=== PATIENT | male | born 1945 | race Caucasian/White ===

== ENCOUNTER 2016-11-09 23:00 | Emergency (ER) | payer MEDICARE, OTHER ==
[~2016-11-09] VITALS: Ht 165.1 cm; Wt 73.7 kg
[~2016-11-09 23:00] MED LIST: CAPT25TA3 PO; CIPR500T4 PO; DOCU-144 PO; HYDR-3498 PO; METR500T PO; RIZA10TA24 PO
[2016-11-09 23:07] VITALS: Ht 165.1 cm; Wt 73.7 kg
[2016-11-10] MEDS ORDERED: morphine 4 MG/ML VIAL IV STA (01:01)
[2016-11-10] MEDS ORDERED: SOD CHLORIDE 0.9% 500 ML IV STA (01:01)
[2016-11-10] MEDS ORDERED: ONDANSETRON 4 MG INJ IV STA (01:01)
[2016-11-10 01:35] LABS: ADD SCAN DIFF NO
[2016-11-10 01:39] LABS: BASOPHILS % 0.8 % (0.0-2.0); EOSINOPHILS # 0.1 10^3/ul (0.0-0.5); EOSINOPHILS % 2.7 % (0.0-7.0); HEMATOCRIT 41.6 % (42.0-52.0); HEMOGLOBIN 13.7 g/dl (14.0-18.0); LYMPHOCYTES # 1.7 10^3/ul (0.8-2.9); LYMPHOCYTES % 45.8 % (15.0-51.0); MEAN CORPUSCULAR HEMOGLOBIN 30.2 pg (29.0-33.0); MEAN CORPUSCULAR HGB CONC 32.9 g/dl (32.0-37.0); MEAN CORPUSCULAR VOLUME 91.6 fl (82.0-101.0); MEAN PLATELET VOLUME 10.1 fl (7.4-10.4); MONOCYTE # 0.5 10^3/ul (0.3-0.9); MONOCYTES % 13.7 % (0.0-11.0); NEUTROPHIL # 1.4 10^3/ul (1.6-7.5); PLATELET COUNT 165 10^3/UL (140-415); RED BLOOD COUNT 4.54 10^6/ul (4.70-6.10); RED CELL DISTRIBUTION WIDTH 13.8 % (11.5-14.5); WHITE BLOOD COUNT 3.7 10^3/ul (4.8-10.8)
[2016-11-10 01:49] LABS: ALBUMIN 4.1 g/dl (3.3-4.9)
[2016-11-10 01:50] LABS: POTASSIUM 4.3 mmol/L (3.5-5.1)
[2016-11-10 01:52] LABS: ALBUMIN/GLOBULIN RATIO 1.2; BILIRUBIN,INDIRECT 0.2 mg/dl (0-1.1); BILIRUBIN,TOTAL 0.2 mg/dl (0.2-1.3); CREATININE 0.69 mg/dl (0.61-1.24); TOTAL PROTEIN 7.5 g/dl (6.1-8.1)
[2016-11-10 01:53] LABS: CALCIUM 9.1 mg/dl (8.4-10.2)
--- NOTE | 2016-11-10 02:58 | RADRPT ---
PROCEDURE: CT Abdomen and Pelvis without contrast. CLINICAL INDICATION: Pain. TECHNIQUE: CT scan of the abdomen and pelvis was performed on a multidetector slice CT scanner. N o intravenous contrast material was utilized. Sagittal and coronal reformatted images were obtained from the axial source images. Images were reviewed on a high-resolution PACS workstation. Exam CTDl vol = 9 mGy and DLP = 530 Gy-cm. One of the following 3 dose reduction techniques were used: Automa minoo exposure control; adjustment of the mA and/or kV according to patient size; or use of iterative reconstruction technique. COMPARISON: 04/23/2016 FINDINGS: There is no obstruction or ileus. The appendix is visualized and is normal in size. There is no ev idence for acute appendicitis. There is left and sigmoid colon diverticulosis without evidence for diverticulitis. There is no free fluid. The liver is overall normal in size. No intrahepatic lesions are identified. The gallbladder is no rmal in appearance. There is no definite biliary ductal dilation. Pancreas is normal in appearance. Spleen is unremarkable.. There are no adrenal masses. The aorta is normal caliber. There are mild atherosclerotic vascular calcifications. There are bilateral renal cyst, largest lower pole right kidney 2.4 cm diameter. Kidneys are otherw ise normal in appearance without hydronephrosis, mass or calculus. Ureters are of normal caliber. Urinary bladder is unremarkable. The bones are unremarkable. Limited evaluation lung bases demonstrates an unchanged 5.4 x 4.6 mm noncalcified lung nodule. IMPRESSION: 1. Left and sigmoid colon diverticulosis without evidence for acute diverticulitis. 2. No evidence for appendicitis. 3. No obstruction or ileus. 4. Bilateral renal cyst. No obstructive uropathy. 5. Mild atherosclerotic vascular calcifications. 6. Unchanged noncalcified right lower lobe nodule. RPTAT: HMVK .Elias Smith MD, MD Date Time Electronically viewed and signed by .Elias Smith MD, MD on 11/10/2016 02:57 .K/
[2016-11-10 02:59] LABS: ADD UMIC YES; URINE BILIRUBIN (Dip) NEGATIVE (NEGATIVE); URINE BLOOD (Dip) 1+ (NEGATIVE); URINE COLOR LT. YELLOW (YELLOW); URINE GLUCOSE (Dip) NEGATIVE (NEGATIVE); URINE KETONES (Dip) NEGATIVE (NEGATIVE); URINE LEUKOCYTE ESTERASE (Dip) NEGATIVE (NEGATIVE); URINE NITRITE (Dip) NEGATIVE (NEGATIVE); URINE TOTAL PROTEIN (Dip) NEGATIVE (NEGATIVE); URINE UROBILINOGEN (Dip) 0.2 E.U./dL (0.1-1.0)
[2016-11-10 03:29] LABS: URINE RBCS 0-2 /HPF (0)
--- NOTE | 2016-11-10 03:38 | ERD ---
ER Documentation Chief Complaint Date/Time DATE: 11/10/16 TIME: 03:37 Chief Complaint RLQ ABD PAIN STARTING TODAY. DENIES N/V/D OR DYSURIA HPI This a 71-year-old male right lower quadrant vomiting started today. Denies any nausea vomiting diarrhea. Pain is mild to moderate intensity. Denies any fevers or chills. Patient has history of diverticulitis and diverticulosis. ROS All systems reviewed and are negative except as per history of present illness. Medications Home Meds Active Scripts Docusate Sodium* (Colace*) 100 Mg Capsule, 100 MG PO TID, #30 CAP Prov:JAMEWINTHA DO 04/23/16 Hydrocodone Bit-Acetaminophen* ([place]*) 5-325 Mg Tab, 1 TAB PO Q6 Y for PAIN, # 7 TAB Prov:JAMEWINTHA DO 04/23/16 Metronidazole* (Flagyl*) 500 Mg Tablet, 500 MG PO TID for 10 Days, TAB Prov:JOSE ANTONIO KILGORE DO 04/23/16 Ciprofloxacin Hcl* (Ciprofloxacin Hcl*) 500 Mg Tablet, 500 MG PO BID for 10 Days , TAB Prov:SGNIKKYKaykayWINTHA DO 04/23/16 Hydrocodone Bit-Acetaminophen* ([place]*) 5-325 Mg Tab, 1 TAB PO Q6 Y for PAIN, # 7 TAB Prov:AURORA ABARCA PA-C 07/27/15 Reported Medications Rizatriptan Benzoate (Rizatriptan Benzoate) 10 Mg Tab.rapdis, 10 MG PO NEEDED Y for MIGRAINE, TAB may repeat after 2 hours, MAX 30 mg/24 hour 04/23/16 Captopril* (Captopril*) 25 Mg Tablet, 25 MG PO DAILY, #60 TAB 11/08/15 Allergies Allergies: Coded Allergies: No Known Drug Allergies (Verified Allergy, Unknown, 04/23/16) PMhx/Soc History of Surgery: No Anesthesia Reaction: No Hx Neurological Disorder: No Hx Respiratory Disorders: Yes (COPD) Hx Cardiac Disorders: Yes (HTN) Hx Psychiatric Problems: No Hx Miscellaneous Medical Probl: No Hx Alcohol Use: No Hx Substance Use: No Hx Tobacco Use: No Smoking Status: Never smoker Physical Exam Vitals Vital Signs Date Time Temp Pulse Resp B/P Pulse Ox O2 Delivery O2 Flow Rate FiO2 11/10/16 01:24 97.0 70 17 140/97 100 11/09/16 23:07 96.2 61 16 123/74 97 Physical Exam Const: [] Head: Atraumatic Eyes: Normal Conjunctiva ENT: Normal External Ears, Nose and Mouth. Neck: Full range of motion..~ No meningismus. Resp: Clear to auscultation bilaterally Cardio: Regular rate and rhythm, no murmurs Abd: Soft, non tender, non distended. Normal bowel sounds Skin: No petechiae or rashes Back: No midline or flank tenderness Ext: No cyanosis, or edema Neur: Awake and alert Psych: Normal Mood and Affect Result Diagram: 11/10/166 11/10/16 0116 Results 24 hrs Laboratory Tests Test 11/10/16 01:16 11/10/16 02:00 Alanine Aminotransferase (ALT/SGPT) 25IU/L Albumin 4.1g/dl Albumin/Globulin Ratio 1.20 Alkaline Phosphatase 38IU/L Anion Gap 15 Aspartate Amino Transf (AST/SGOT) 19IU/L Basophils # 0.010^3/ul Basophils % 0.8% Blood Urea Nitrogen 17mg/dl Calcium Level 9.1mg/dl Carbon Dioxide Level 27mmol/L Chloride Level 103mmol/L Creatinine 0.69mg/dl Direct Bilirubin 0.00mg/dl Eosinophils # 0.110^3/ul Eosinophils % 2.7% Globulin 3.40g/dl Glucose Level 81mg/dl Hematocrit 41.6% Hemoglobin 13.7g/dl Indirect Bilirubin 0.2mg/dl Lipase 69U/L Lymphocytes # 1.710^3/ul Lymphocytes % 45.8% Mean Corpuscular Hemoglobin 30.2pg Mean Corpuscular Hemoglobin Concent 32.9g/dl Mean Corpuscular Volume 91.6fl Mean Platelet Volume 10.1fl Monocytes # 0.510^3/ul Monocytes % 13.7% Neutrophils # 1.410^3/ul Neutrophils % 37.0% Nucleated Red Blood Cells # 0.010^3/ul Nucleated Red Blood Cells % 0.0/100WBC Platelet Count 47415^3/UL Potassium Level 4.3mmol/L Red Blood Count 4.5410^6/ul Red Cell Distribution Width 13.8% Sodium Level 141mmol/L Total Bilirubin 0.2mg/dl Total Protein 7.5g/dl White Blood Count 3.710^3/ul Urine Bilirubin NEGATIVE Urine Calcium Oxalate Crystals FEW Urine Clarity CLEAR Urine Color LT. YELLOW Urine Glucose NEGATIVE% Urine Hemoglobin 1+ Urine Ketones NEGATIVE Urine Leukocyte Esterase NEGATIVE Urine Microscopic RBC 0-2/HPF Urine Microscopic WBC NONE SEEN/HPF Urine Nitrite NEGATIVE Urine Specific [place] 1.020 Urine Total Protein NEGATIVE Urine Urobilinogen 0.2 E.U./dL Urine pH 6.0 Current Medications Medications (Trade) Dose Ordered Sig/Frank Route PRN Reason Start Time Stop Time Status Last Admin Dose Admin Sodium Chloride (NS) 500 ml @ 500 mls/hr Q1H STAT IV 11/10/16 01:01 11/10/16 02:00 DC 11/10/16 01:15 Morphine Sulfate (morphine) 4 mg ONCE STAT IV 11/10/16 01:01 11/10/16 01:02 DC Ondansetron HCl (Zofran Inj) 4 mg ONCE STAT IV 11/10/16 01:01 11/10/16 01:03 DC Procedures/MDM Medical decision-makin-year-old male with a early evidence of diverticulitis. No evidence of sepsis. Patient was discharged on Cipro Flagyl , tramadol and Zofran. Follow-up in 8 hours for serial abdominal exams. Departure Diagnosis: Primary Impression: Abdominal pain Abdominal location: right lower quadrant Qualified Code: R10.31 - Right lower quadrant abdominal pain Condition: Stable LEEROY RIVAS Nov 10, 2016 03:38
[2016-11-10] MEDS ORDERED: TRAM50TA2 PO (03:40)
[2016-11-10] MEDS ORDERED: METR500T PO (03:40)
[2016-11-10] MEDS ORDERED: CIPR500T4 PO (03:40)
[2016-11-10] MEDS ORDERED: ONDA4TAB14 PO (03:40)
[2016-11-10 04:10] VITALS: BP 130/90; PULSE 65; RESP 18; TEMP 97
== END 2016-11-10 04:11 | disposition home or self-care (01) ==
LOC: FTE 23:00 → E/R 11-10 04:11
DX: R10.31 Right lower quadrant pain (principal); I10 Essential (primary) hypertension; J44.9 Chronic obstructive pulmonary disease, unspecified
CPT/HCPCS: 36415; 74176; 80053; 81001; 83690; 85025; 99285; J7040; 81003; J2270; J2405

== ENCOUNTER 2016-12-15 03:42 | Observation (INO) | payer OTHER, MEDICARE ==
[~2016-12-15] VITALS: Ht 170.2 cm; Wt 72.5 kg
[~2016-12-15 03:42] MED LIST changes: +ONDA4TAB14 PO; +TRAM50TA2 PO
[2016-12-15 04:27] LABS: ADD SCAN DIFF NO
[2016-12-15 04:37] LABS: ALBUMIN 4.2 g/dl (3.3-4.9)
[2016-12-15 04:38] LABS: CHLORIDE 104 mmol/L (97-110); POTASSIUM 4.2 mmol/L (3.5-5.1); SODIUM 139 mmol/L (135-144)
[2016-12-15 04:39] LABS: PROTIME 13.2 Sec (12.2-14.2)
[2016-12-15 04:40] LABS: ALBUMIN/GLOBULIN RATIO 1.35; ALKALINE PHOSPHATASE 40 IU/L (42-121); ANION GAP 11 (8-16); ASPARTATE AMINO TRANSFERASE 17 IU/L (15-46); BASOPHILS % 0.8 % (0.0-2.0); BILIRUBIN,INDIRECT 0.3 mg/dl (0-1.1); BILIRUBIN,TOTAL 0.3 mg/dl (0.2-1.3); CARBON DIOXIDE 28 mmol/L (21-31); CREATININE 0.78 mg/dl (0.61-1.24); EOSINOPHILS # 0.1 10^3/ul (0.0-0.5); EOSINOPHILS % 2.8 % (0.0-7.0); HEMATOCRIT 41.5 % (42.0-52.0); LYMPHOCYTES # 1.6 10^3/ul (0.8-2.9); MEAN CORPUSCULAR HEMOGLOBIN 31.3 pg (29.0-33.0); MEAN CORPUSCULAR HGB CONC 33.7 g/dl (32.0-37.0); MEAN CORPUSCULAR VOLUME 92.6 fl (82.0-101.0); MEAN PLATELET VOLUME 10.2 fl (7.4-10.4); MONOCYTE # 0.5 10^3/ul (0.3-0.9); MONOCYTES % 12.5 % (0.0-11.0); NEUTROPHIL # 1.7 10^3/ul (1.6-7.5); NEUTROPHILS % 42.6 % (39.0-77.0); PARTIAL THROMBOPLASTIN TIME 28.7 Sec (25.0-35.0); PLATELET COUNT 174 10^3/UL (140-415); RED BLOOD COUNT 4.48 10^6/ul (4.70-6.10); RED CELL DISTRIBUTION WIDTH 13.7 % (11.5-14.5); TOTAL PROTEIN 7.3 g/dl (6.1-8.1)
[2016-12-15 04:41] LABS: ALANINE AMINOTRANSFERASE 25 IU/L (13-69); BLOOD UREA NITROGEN 19 mg/dl (7-20); CALCIUM 9.3 mg/dl (8.4-10.2); GLUCOSE 97 mg/dl (70-220)
[2016-12-15 04:49] LABS: B-TYPE NATRIURETIC PEPTIDE 54 PG/ML (0-125)
[2016-12-15 05:02] LABS: TROPONIN-I < 0.010 ng/ml (0.00-0.12)
--- NOTE | 2016-12-15 05:18 | ERA ---
ER Documentation Chief Complaint Date/Time DATE: 12/15/16 TIME: 05:17 Chief Complaint LEFT CHEST PAIN/BURNING SINCE YESTERDAY. HPI This is a 8-year-old male comes left-sided chest pain started 12 hours ago. Pain is mild to moderate intensity. Pressure-like. Non-radiating. No exacerbating relieving factors. No diaphoresis. No nausea no vomiting no fevers no chills. No other current complaints. ROS All systems reviewed and are negative except as per history of present illness. Medications Home Meds Active Scripts Ondansetron (Ondansetron Odt) 4 Mg Tab.rapdis, 4 MG PO Q6H Y for NAUSEA AND/OR VOMITING, #10 TAB Prov:LEEROY RIVAS S. 11/10/16 Tramadol HCl (Tramadol HCl) 50 Mg Tablet, 50 MG PO Q4 Y for PAIN, #20 TAB Prov:LEEROY RIVAS S. 11/10/16 Metronidazole* (Flagyl*) 500 Mg Tablet, 500 MG PO TID for 7 Days, TAB Prov:LEEROY RIVAS S. 11/10/16 Ciprofloxacin Hcl* (Ciprofloxacin Hcl*) 500 Mg Tablet, 500 MG PO BID for 7 Days , TAB Prov:LEEROY RIVAS S. 11/10/16 Docusate Sodium* (Colace*) 100 Mg Capsule, 100 MG PO TID, #30 CAP Prov:JOSE ANTONIO KILGORE DO 04/23/16 Hydrocodone Bit-Acetaminophen* ([place]*) 5-325 Mg Tab, 1 TAB PO Q6 Y for PAIN, # 7 TAB Prov:JOSE ANTONIO KILGORE DO 04/23/16 Metronidazole* (Flagyl*) 500 Mg Tablet, 500 MG PO TID for 10 Days, TAB Prov:JOSE ANTONIO KILGORE DO 04/23/16 Ciprofloxacin Hcl* (Ciprofloxacin Hcl*) 500 Mg Tablet, 500 MG PO BID for 10 Days , TAB Prov:JOSE ANTONIO KILGORE DO 04/23/16 Hydrocodone Bit-Acetaminophen* ([place]*) 5-325 Mg Tab, 1 TAB PO Q6 Y for PAIN, # 7 TAB Prov:AURORA ABARCA PA-C 07/27/15 Reported Medications Rizatriptan Benzoate (Rizatriptan Benzoate) 10 Mg Tab.rapdis, 10 MG PO NEEDED Y for MIGRAINE, TAB may repeat after 2 hours, MAX 30 mg/24 hour 04/23/16 Captopril* (Captopril*) 25 Mg Tablet, 25 MG PO DAILY, #60 TAB 11/08/15 Allergies Allergies: Coded Allergies: No Known Drug Allergies (Verified Allergy, Unknown, 04/23/16) PMhx/Soc History of Surgery: No Anesthesia Reaction: No Hx Neurological Disorder: No Hx Respiratory Disorders: Yes (COPD) Hx Cardiac Disorders: Yes (HTN, CHEST PAIN) Hx Psychiatric Problems: No Hx Miscellaneous Medical Probl: Yes (ANEMIA, CHRONIC BACK PAIN) Hx Alcohol Use: No Hx Substance Use: No Hx Tobacco Use: Yes (QUIT 3 YEARS AGO) Smoking Status: Former smoker Physical Exam Vitals Vital Signs Date Time Temp Pulse Resp B/P Pulse Ox O2 Delivery O2 Flow Rate FiO2 12/15/16 05:06 98.1 68 18 131/91 100 Nasal Cannula 2.0 12/15/16 04:28 Nasal Cannula 2 12/15/16 03:57 96.5 61 18 133/83 99 Physical Exam Const: [] Head: Atraumatic Eyes: Normal Conjunctiva ENT: Normal External Ears, Nose and Mouth. Neck: Full range of motion..~ No meningismus. Resp: Clear to auscultation bilaterally Cardio: Regular rate and rhythm, no murmurs Abd: Soft, non tender, non distended. Normal bowel sounds Skin: No petechiae or rashes Back: No midline or flank tenderness Ext: No cyanosis, or edema Neur: Awake and alert Psych: Normal Mood and Affect Result Diagram: 12/15/16 0420 12/15/16 0420 Results 24 hrs Laboratory Tests Test 12/15/16 04:20 White Blood Count 4.010^3/ul Red Blood Count 4.4810^6/ul Hemoglobin 14.0g/dl Hematocrit 41.5% Mean Corpuscular Volume 92.6fl Mean Corpuscular Hemoglobin 31.3pg Mean Corpuscular Hemoglobin Concent 33.7g/dl Red Cell Distribution Width 13.7% Platelet Count 42151^3/UL Mean Platelet Volume 10.2fl Neutrophils % 42.6% Lymphocytes % 41.0% Monocytes % 12.5% Eosinophils % 2.8% Basophils % 0.8% Nucleated Red Blood Cells % 0.0/100WBC Neutrophils # 1.710^3/ul Lymphocytes # 1.610^3/ul Monocytes # 0.510^3/ul Eosinophils # 0.110^3/ul Basophils # 0.010^3/ul Nucleated Red Blood Cells # 0.010^3/ul Prothrombin Time 13.2Sec Prothrombin Time Ratio 1.0 INR International Normalized Ratio 1.00 Activated Partial Thromboplast Time 28.7Sec Sodium Level 139mmol/L Potassium Level 4.2mmol/L Chloride Level 104mmol/L Carbon Dioxide Level 28mmol/L Anion Gap 11 Blood Urea Nitrogen 19mg/dl Creatinine 0.78mg/dl Glucose Level 97mg/dl Calcium Level 9.3mg/dl Total Bilirubin 0.3mg/dl Direct Bilirubin 0.00mg/dl Indirect Bilirubin 0.3mg/dl Aspartate Amino Transf (AST/SGOT) 17IU/L Alanine Aminotransferase (ALT/SGPT) 25IU/L Alkaline Phosphatase 40IU/L Troponin I < 0.010ng/ml B-Type Natriuretic Peptide 54PG/ML Total Protein 7.3g/dl Albumin 4.2g/dl Globulin 3.10g/dl Albumin/Globulin Ratio 1.35 Procedures/MDM EKG: Rate/Rhythm: Normal Sinus Rhythm QRS, ST, T-waves: No changes consistent w/ acute ischemia Impression: No evidence of ischemia or arrhythmia Chest X-ray 1V Interpreted by me: Soft Tissue: No acute abnormalities Bones: No acute abnormalities Mediastinum/Cardiac Silhouette/Lungs: No acute abnormalities Patient's symptoms are concerning for cardiac cause will require inpatient workup and continuous monitoring. Further w/u for ischemia, arrhythmia, PE or dissection will be deferred to the inpatient team. Accepting Care Team: Current data and ongoing care discussed. Time: 5:20 AM Primary Provider: Hospitalist Consulting: [XOXOXO] Outstanding Data: none Departure Diagnosis: Primary Impression: Chest pain Qualified Code: I20.0 - Unstable angina pectoris Condition: Serious LEEROY RIVAS Dec 15, 2016 05:18
--- NOTE | 2016-12-15 05:20 | RADRPT ---
PROCEDURE: XR Chest. CLINICAL INDICATION: Chest Pain. TECHNIQUE: Single frontal chest x-ray. COMPARISON: 11/02/2014 FINDINGS: No focal lung consolidation is seen. The heart is not enlarged. ECG leads are projected over the c hest. COPD is again suggested. Fat pads in bilateral cardiophrenic angles again seen. IMPRESSION: 1. There is no acute cardiopulmonary process. RPTAT: HJES .Lisandro Mahan MD, MD Date Time Electronically viewed and signed by .Lisandro Mahan MD, on 12/15/2016 05:20 .S/
[2016-12-15] MEDS ORDERED: ASPIRIN 81 MG TAB PO ONE (05:21)
[2016-12-15] MEDS ORDERED: ONDANSETRON 4 MG INJ IV ONE (05:21)
[2016-12-15] MEDS ORDERED: morphine 2 MG INJ IV ONE (05:21)
[2016-12-15] MEDS ORDERED: METOCLOPRAMIDE 10 MG INJ IV PRN (06:00)
[2016-12-15] MEDS ORDERED: morphine 2 MG INJ IV PRN (06:00)
[2016-12-15] MEDS ORDERED: OXYCODONE/ACETAMINOPHEN (5/325) TAB PO PRN (06:00)
[2016-12-15] MEDS ORDERED: ACETAMINOPHEN 325 MG TAB PO PRN (06:00)
[2016-12-15] MEDS ORDERED: NACL 0.9% 3 ML SYG IV SCH (06:00)
[2016-12-15] MEDS ORDERED: NITROGLYCERIN (SL) 0.4 MG TAB SL PRN (06:00)
[2016-12-15 08:25] LABS: CREATINE KINASE 65 IU/L (23-200)
[2016-12-15] MEDS: ENOXAPARIN 40 MG/0.4 ML SYG SC SCH (08:36)
[2016-12-15 08:37] LABS: CK-MB 0.63 ng/ml (0.0-2.4)
[2016-12-15] MEDS: DOCUSATE SODIUM 100 MG CAP PO SCH ×3 (08:41→22:18)
[2016-12-15 08:42] LABS: TROPONIN-I < 0.010 ng/ml (0.00-0.12)
[2016-12-15] MEDS ORDERED: FAMOTIDINE 20 MG TAB PO SCH (09:00)
[2016-12-15 10:02] LABS: CHOL/HDL RATIO 4.4 RATIO
[2016-12-15] MEDS: ATORVASTATIN 20 MG TAB PO SCH (10:14)
--- NOTE | 2016-12-15 11:49 | CONS ---
Date/Time of Note Date/Time of Note DATE: 12/15/16 TIME: 11:31 Assessment/Plan Assessment/Plan Additional Assessment/Plan * Assessment * Chest pain Cardiac vs gi vs others History of Diverticulosis History of COPD Plan EGD once cleared by cardiac,risks and benefit explained to the patient,agreed with plan procedure PPI Consultation Date/Type/Reason Admit Date/Time Type of Consultation: Gastroenterology Reason for Consultation Chest discomfort Referring Provider: MARIAN NATION Hx of Present Illness 71 year old male with past medical history of COPD,Diverticulosis referred to for evaluation of chest discomfort 12 hours ago ,non radiating,localized,no nausea ,vomiting or diaphoresis;Patient had been seen previously here in our hospital because of Chest pain/GERD and Diverticulitis.Presently ,he denies any chest pain ,dysphagia or diaphoresis but claims to have an episode of heartburn 3 weeks ago .He refused morphine being offered.I have explained that an upper endoscopy would be performed to rule any possible pathology in the GI tract Laboratory examination revealed troponin less than 0.010 x2 ,CKMB 0.63 Hemoglobin 14,chest x ray no acute pulmonary process. Constitutional: improved, no complaints Eyes: no complaints ENT: no complaints Respiratory: no complaints Cardiovascular: chest pain, No edema, No orthopenea, No palpitations, No paroxysmal nocturnal dyspnea Gastrointestinal: flatus, no complaints, other (bloating), passing stool, No constipation, No nausea Genitourinary: no complaints Musculoskeletal: no complaints Skin: no complaints Neurologic: no complaints Endocrine: no complaints Lymphatic: no complaints Psychological: nl mood/affect, no complaints Immunologic: no complaints Past Medical History Medical History: other (copd,Diverticulosis) Past Surgical History Past Surgical Hx: no surgical history Family History Significant Family History: no pertinent family hx Social History Alcohol Use: rarely Smoking Status: Former smoker Exam/Review of Systems Vital Signs Vitals Vital Signs Date Time Temp Pulse Resp B/P Pulse Ox O2 Delivery O2 Flow Rate FiO2 12/15/16 11:09 66 18 105/69 100 Nasal Cannula 2.0 12/15/16 08:44 98.1 Exam Constitutional: alert, oriented, well developed Psych: nl mood/affect, no complaints Head: atraumatic, normocephalic Eyes: EOMI, PERRL, nl conjunctiva, nl lids, nl sclera ENMT: nl external ears & nose, nl lips & teeth, nl nasal mucosa & septum Neck: non-tender, supple Respiratory: clear to auscultation, normal air movement Cardiovascular: nl pulses, regular rate and rhythm Gastrointestinal: bowel sounds, nl liver, spleen, non-tender, soft, No rebound or guarding Musculoskeletal: nl extremities to inspection, nl gait and stance Extremities: normal pulses Neurological: LEAD DEVELOPER II-XII intact, nl mental status, nl speech, nl strength Skin: nl turgor, No rash or lesions Lymph: nl lymph nodes Results Result Diagram: 12/15/1641912/15/16 042 Results 24 hrs Laboratory Tests Test 12/15/16 04:20 12/15/16 07:30 White Blood Count 4.0 L Red Blood Count 4.48 L Hemoglobin 14.0 Hematocrit 41.5 L Mean Corpuscular Volume 92.6 Mean Corpuscular Hemoglobin 31.3 Mean Corpuscular Hemoglobin Concent 33.7 Red Cell Distribution Width 13.7 Platelet Count 174 Mean Platelet Volume 10.2 Neutrophils % 42.6 Lymphocytes % 41.0 Monocytes % 12.5 H Eosinophils % 2.8 Basophils % 0.8 Nucleated Red Blood Cells % 0.0 Neutrophils # 1.7 Lymphocytes # 1.6 Monocytes # 0.5 Eosinophils # 0.1 Basophils # 0.0 Nucleated Red Blood Cells # 0.0 Prothrombin Time 13.2 Prothrombin Time Ratio 1.0 INR International Normalized Ratio 1.00 Activated Partial Thromboplast Time 28.7 Sodium Level 139 Potassium Level 4.2 Chloride Level 104 Carbon Dioxide Level 28 Anion Gap 11 Blood Urea Nitrogen 19 Creatinine 0.78 Glucose Level 97 Calcium Level 9.3 Total Bilirubin 0.3 Direct Bilirubin 0.00 Indirect Bilirubin 0.3 Aspartate Amino Transf (AST/SGOT) 17 Alanine Aminotransferase (ALT/SGPT) 25 Alkaline Phosphatase 40 L Troponin I < 0.010 < 0.010 B-Type Natriuretic Peptide 54 Total Protein 7.3 Albumin 4.2 Globulin 3.10 Albumin/Globulin Ratio 1.35 Creatine Kinase 65 Creatine Kinase Index 1.0 Creatinine Kinase MB (Mass) 0.63 Triglycerides Level 90 Cholesterol Level 202 H LDL Cholesterol, Calculated 139 HDL Cholesterol 45 Cholesterol/HDL Ratio 4.4 Medications Medications Current Medications Captopril (Capoten) 25 mg DAILY PO Last administered on 12/15/16t 08:35; Admin Dose 25 MG; Start 12/15/16 at 09:00 Docusate Sodium (Colace) 100 mg TID PO ; Start 12/15/16 at 09:00 Metoclopramide HCl (Reglan) 10 mg Q6H PRN IV NAUSEA AND/OR VOMITING; Start 12/15 at 06:00 Nitroglycerin (Nitroglycerin (Sl Tab) 0.4 Mg) 1 tab Q5M PRN SL CHEST PAIN; Start 12/15/16 at 06:00 Acetaminophen (Tylenol Tab) 650 mg Q6H PRN PO PAIN LEVEL 1-3 OR FEVER; Start at 06:00 Oxycodone/ Acetaminophen (Percocet (5/ 325)) 1 tab Q6H PRN PO PAIN LEVEL 4-6; Start 12/15/16 at 06:00 Morphine Sulfate (morphine) 2 mg Q4H PRN IV PAIN LEVEL 7-10; Start 12/15/16 at 06:00 Famotidine (Pepcid) 20 mg Q12 PO Last administered on 12/15/16 08:37; Admin Dose 20 MG; Start 12/15/16 at 09:00 Enoxaparin Sodium (Lovenox) 40 mg DAILY SC Last administered on 12/15/16 08:36 ; Admin Dose 40 MG; Start 12/15/16 at 09:00 Aspirin (Halfprin) 81 mg DAILY PO ; Start 12/16/16 at 09:00 Atorvastatin Calcium (Lipitor) 20 mg DAILY PO Last administered on 12/15/16 10: 14; Admin Dose 20 MG; Start 12/15/16 at 10:00 DERIC JULIEN MD Dec 15, 2016 11:43
[2016-12-15 15:29] LABS: CREATINE KINASE 61 IU/L (23-200)
[2016-12-15 15:43] LABS: CK-MB 0.62 ng/ml (0.0-2.4); TROPONIN-I < 0.012 ng/ml (0.00-0.12)
--- NOTE | 2016-12-15 17:05 | HP ---
DATE OF ADMISSION: 12/15/2016 FAMILY AND CONSUMER SCIENCES TEACHER: Naresh Rubio MD, rejogger. CHIEF COMPLAINT: Abdominal pain and chest discomfort. 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 He presents to [facility], which his troponin was found to be negative. His chest x-ray showed there is no acute cardiopulmonary disease. EKG demonstrated norm al sinus rhythm, no changes consistent with acute ischemia. No evidence of ischemia or arrhythmia. The patient was treated with Zofran, morphine and aspirin, and gastroenterology was consulted from course of the emergency room. At this time, the patient states that his discomfort has resolved com pletely. He denies having any chest pain, shortness of breath, nausea, vomiting, diarrhea. No head ache, dizziness, lightheadedness. No change in visual acuity, diplopia, photophobia. No abdominal pain. No change in the color of stool. No neck pain, no restricted range of motion in upper and lo wer extremities. No recent travel history. No sick contact or any other discomfort. PAST MEDICAL AND SURGICAL HISTORY: 1. Hypertension. 2. Noncompliance with medications. MEDICATIONS: 1. Captopril. 2. Colace. 3. Aspirin, although he is not compliant with any of them. ALLERGIES: NO KNOWN DRUG ALLERGIES. FAMILY HISTORY: Noncontributory. SOCIAL HISTORY: History of alcohol socially. Smoked cigarettes 1 pack a day, he is in remission fo r the past 3 years. No illicit drugs. He lives at home with his son. REVIEW OF SYSTEMS: As above per HPI, otherwise 12 review of systems was found to be negative. PHYSICAL EXAMINATION: VITAL SIGNS: Temperature 98.1, pulse 60, respirations 18, blood pressure 106/79, oxygen saturation 100% in room air. GENERAL APPEARANCE: The patient is lying in bed comfortably without any distress. He is awake, leonid rt, oriented. He is able to answer my questions properly. EYES AND ENT: Conjunctivae and lids are normal. Pupils are normal. Extraocular normal. Hearing g rossly normal. Lips, teeth and gums are normal. Oral mucosa is moist. NECK: Supple. Trachea is midline. No lymphadenopathy. RESPIRATORY: Effort is normal. Clear to auscultation bilaterally. CARDIOVASCULAR: Normal S1, S2. Regular rhythm and rate. No murmur, no bruits, no edema. Peripher al pulses, radial pulses palpable. Capillary refill is normal. CHEST: Normal expansion of thorax during inspiration. GASTROINTESTINAL: Abdomen is soft, nontender, not distended. Bowel sounds present. No guarding or rebound. GENITOURINARY: Deferred. MUSCULOSKELETAL: Upper and lower extremities within normal limits. Full range of motion. Strength 5/5 in both upper and lower extremities. NEUROLOGIC: Cranial nerves II through XII are grossly intact. PSYCHIATRIC: Normal judgment and insight. Alert and oriented x3. Mood and affect is normal. LABORATORY DATA: Sodium 139, potassium 4.2, chloride 104, bicarbonate 28, BUN 19, creatinine 0.78, glucose 97. LFTs all within normal limits. Troponin negative x2. Triglycerides 90, total choleste rol 202, LDL 139, HDL 45. TSH 7.490. WBC 4.0, hemoglobin 14, hematocrit 41.5, platelets 174. Chest x-ray: No acute cardiopulmonary disease. EKG: No sign of ST elevation or depression, no sig n of ischemia. ASSESSMENT AND PLAN: 1. Atypical chest pain. The patient will be admitted to rule out acute coronary syndrome. The pat ient's troponin is negative x2. Place the patient on aspirin and statin. Continue captopril. Card iology will be consulted. Obtain a 2D echocardiogram. 2. Abdominal discomfort. Gastroenterology has been consulted. The patient has been placed on Prot chi. Follow up their recommendation. 3. Essential hypertension, well controlled on captopril. 4. Abnormal thyroid panel. Follow up free T3 and free T4 and treat accordingly. 5. Noncompliance with medications. Education was provided. 6. We will continue to monitor the patient closely. Further recommendations, management and treatm ent as per clinical course. Dictated By: KAMARI TAVARES MD PN/NTS Conf#: [id number] DID#: [id number]
[2016-12-15 17:17] VITALS: TEMP 97.8
--- NOTE | 2016-12-15 18:04 | RADRPT ---
Echocardiogram Report Patient Name: KATIE CAMP Gender: Male Date: 1945 Study Date: 15-Dec-2016 Solar Process Engineer: Rebecca Arnold RDCS Location: [facility] Ref. Physician: MARÍA ELENA YANEZ Quality: Good Procedures: Transthoracic echocardiogram with complete 2D, M-Mode, and doppler examination. Indications: Chest Pain. 2D/M Mode Doppler Measurement Value Normal Ranges Measurement Value Normal Ranges LVIDd 2D 4.3 3.5 - 5.6 cm AV Peak Emil 1.1 m/sec LVIDs 2D 2.9 2.1 - 4.1 cm AV Peak PG 4.5 mmHg LVPWd 2D 0.9 0.6 - 1.1 cm LVOT Peak Emil 0.7 m/sec IVSd 2D 0.8 0.6 - 1.1 cm LVOT Peak PG 2.0 mmHg AoR Diam 2D 2.8 2.0 - 3.7 cm MV E Peak Emil 0.4 m/sec EDV 2D 82.5 cm3 MV A Peak Emil 0.6 m/sec ESV 2D 23.9 cm3 MV E/A 0.8 LA Dimen 2D 2.8 2.3 - 4.0 cm MV Decel Time 202 msec MV Decel [place] 2 MV E/A 0.8 Findings Left Ventricle: Lower limits of normal systolic function. Normal left ventricular cavity size. Normal left ventricular wall thickness. Ejection fraction is visually estimated at 50 %. Tissue Doppler/Mitral Doppler indices are consistent with impaired relaxation (Stage I diastolic dysfunction). Right Ventricle: Normal right ventricular size. Normal right ventricular systolic function. Left Atrium: The left atrium is normal in size. Right Atrium: The right atrium is normal in size. Mitral Valve: Normal appearance and function of the mitral valve with trace physiologic regurgitation. Aortic Valve: Normal appearance of the aortic valve. No significant aortic stenosis or insufficiency. Tricuspid Valve: Normal appearance and function of the tricuspid valve with trace physiologic regurgitation. Normal right ventricular systolic pressure. Pulmonic Valve: Normal pulmonic valve appearance. Pericardium: Normal pericardium with no significant pericardial effusion. Aorta: Normal aortic root. IVC: Normal size and normal respiratory collapse consistent with normal right atrial pressure. Conclusions 1.Lower limits of normal systolic function. Normal left ventricular cavity size. Normal left ventricular wall thickness. Ejection fraction is visually estimated at 50 %. Tissue Doppler/Mitral Doppler indices are consistent with impaired relaxation (Stage I diastolic dysfunction). 2.Normal appearance and function of the mitral valve with trace physiologic regurgitation. 3.Normal appearance and function of the tricuspid valve with trace physiologic regurgitation. Normal right ventricular systolic pressure. Electronically Signed By: Naresh Rubio 15-Dec-2016 18:03:40 -0700 Patient Name: KATIE CAMP Study Date: 15-Dec-2016 [id number]
--- NOTE | 2016-12-15 18:31 | CONS ---
DATE OF ADMISSION: 12/15/2016 DATE OF CONSULTATION: 12/15/2016 REASON FOR CONSULTATION: Chest pain, assess for acute coronary syndrome. REQUESTING PHYSICIAN: Dr. Nation from the hospitalist service. HISTORY OF PRESENT ILLNESS: Mr. Wagner is a 71-year-old male with a history of hypertension, not controlled and dyslipidemia, who initially presented with right-sided substernal chest pain described as a burning sensation at rest while sleeping, nonradiating. Upon arrival, temperature 96.5, blood pressure 132/83, pulse 61, respiratory rate 18, saturating 99%. The patient's labs revealed a white cell count of 4.0, hemogl obin 14, platelet count of 174. Sodium 139, potassium 4.2, creatinine 0.78, ALT ____, AST 20. Trop onin negative. BNP of 54. TSH is 7.49, LDL 139, HDL 45. Patient underwent a chest x-ray revealing no acute cardiopulmonary abnormalities. The patient's electrocardiogram revealed normal sinus rhyt hm, rate of 60, normal axis, normal intervals, and a Q-wave in lead aVL. The patient at this time states that the chest pain has improved. He has been treated with Pepcid, aspirin, morphine and Zof ran. The patient additionally had a second troponin return negative, 2 negative troponins. PAST MEDICAL HISTORY: As above in HPI. MEDICATIONS CURRENTLY IN HOSPITAL: 1. Aspirin 81 mg daily. 2. Protonix 40 mg daily. 3. Lipitor 20 mg at bedtime. 4. Captopril 25 mg daily. 5. Colace 100 mg 3 times daily. 6. Lovenox ____daily. 7. Reglan p.r.n. 8. Sublingual nitroglycerin. 9. Percocet p.r.n. 9. Morphine p.r.n. ALLERGIES: NO KNOWN DRUG ALLERGIES. SOCIAL HISTORY: No tobacco, quit x3 years. No ETOH or illicit drug use. FAMILY HISTORY: No history of sudden cardiac or early CAD. REVIEW OF SYSTEMS: As above in HPI. CONSTITUTIONAL: No fevers, chills. PULMONARY: No current shortness of breath. CARDIOVASCULAR: No current chest pain. GASTROINTESTINAL: No vomiting. GENITOURINARY: No hematuria. MUSCULOSKELETAL: Degenerative joint disease. PSYCHIATRIC: The patient denies depression. NEUROLOGIC: No documented history of CVA. PHYSICAL EXAMINATION VITAL SIGNS: Temperature 98.1, blood pressure 106/79, pulse 60, respiration 18, 100% on 2 liters. GENERAL: The patient is alert, awake, in no acute distress. NECK: JVP approximately 8 cm water. CHEST: Fair air movement throughout. HEART: Regular rate and rhythm. Normal S1, S2, I/ systolic murmur, nondisplaced PMI. ABDOMEN: Positive bowel sounds, soft. EXTREMITIES: No edema, 1+ pulses bilaterally, posterior tibial. LABORATORIES: As above in HPI with since admit patient had a second troponin return negative x2 neg ative troponins. IMAGING STUDIES: As above in HPI. No further imaging studies for my review at this time. ECG: As above in HPI. No further electrocardiograms for my review at this time. IMPRESSION: 1. Chest pain, somewhat atypical symptomatology for cardiac etiology at this time given burning cortez st pain at rest, improved with PPI. Thus far negative troponins x2. 2. Abnormal electrocardiogram with isolated T-wave inversion in aVL, assess for acute coronary synd norah. 3. Hypertension. 4. Dyslipidemia. 5. Remote tobacco intake. RECOMMENDATIONS: 1. At this time, would admit patient to telemetry monitoring to follow rhythm and rate control clos sophia. 2. Continue the patient's aspirin at this time, but continue the patient's current statin therapy a nd adjust it according to fasting lipid panel as checked. 3. Continue the patient's captopril at least to b.i.d. dosing. We will cut the patient's dose in h longterm to make sure the patient can tolerate. 4. We will give the patient sublingual nitroglycerin for any recurrent episodes of chest pain. 5. Will continue the patient's proton pump inhibitor at this time. 6. Check a 2D echocardiogram to further assess patient's ejection fraction, wall motion and any david or valve abnormalities. 7. If the patient does rule out an echo with nonspecific abnormalities, I believe patient would be without cardiac indication,____endoscopy to further evaluate the possibility that his chest pain is of gastric origin. Thank you for allowing me to take part in the care of this patient. I will continue to follow along very closely with you. Dictated By: REED ALLAN/REKHA Conf#: [id number] DID#: [id number] CC: MARIAN NATION MD;*[facility]*
[2016-12-15 20:00] VITALS: BP 135/68; PULSE 69; RESP 18; Ht 170.2 cm; Wt 72.5 kg
[2016-12-15 20:09] VITALS: PULSE 62
[2016-12-15 20:34] VITALS: BP 135/79; RESP 18
[2016-12-16] VITALS (16 sets, daily range): BP systolic 109–129; BP diastolic 66–81; PULSE 56–73; RESP 16–22
[2016-12-16] MEDS ORDERED: PANTOPRAZOLE (EC) 40 MG TAB PO SCH (06:00)
[2016-12-16 07:23] LABS: ADD SCAN DIFF NO
[2016-12-16 07:33] LABS: BASOPHILS % 0.3 % (0.0-2.0); EOSINOPHILS # 0.1 10^3/ul (0.0-0.5); EOSINOPHILS % 2.3 % (0.0-7.0); HEMATOCRIT 43.1 % (42.0-52.0); HEMOGLOBIN 14.1 g/dl (14.0-18.0); LYMPHOCYTES # 1.3 10^3/ul (0.8-2.9); LYMPHOCYTES % 31.8 % (15.0-51.0); MEAN CORPUSCULAR HEMOGLOBIN 30.2 pg (29.0-33.0); MEAN CORPUSCULAR HGB CONC 32.7 g/dl (32.0-37.0); MEAN CORPUSCULAR VOLUME 92.3 fl (82.0-101.0); MEAN PLATELET VOLUME 10.5 fl (7.4-10.4); MONOCYTE # 0.5 10^3/ul (0.3-0.9); MONOCYTES % 11.4 % (0.0-11.0); NEUTROPHIL # 2.1 10^3/ul (1.6-7.5); NEUTROPHILS % 53.9 % (39.0-77.0); PLATELET COUNT 164 10^3/UL (140-415); RED BLOOD COUNT 4.67 10^6/ul (4.70-6.10); RED CELL DISTRIBUTION WIDTH 13.8 % (11.5-14.5)
[2016-12-16 07:49] LABS: CALCIUM 9.2 mg/dl (8.4-10.2); CREATININE 0.75 mg/dl (0.61-1.24)
[2016-12-16] MEDS: ATORVASTATIN 20 MG TAB PO SCH (08:18)
[2016-12-16] MEDS: DOCUSATE SODIUM 100 MG CAP PO SCH ×2 (08:18→12:43)
[2016-12-16] MEDS: ENOXAPARIN 40 MG/0.4 ML SYG SC SCH (09:00)
[2016-12-16] MEDS ORDERED: ASPIRIN (EC) 81 MG TAB PO SCH (09:00)
[2016-12-16 09:44] LABS: CHOL/HDL RATIO 4.8 RATIO
--- NOTE | 2016-12-16 12:24 | CONS ---
Date/Time of Note Date/Time of Note DATE: 12/16/16 TIME: 12:20 Assessment/Plan Assessment/Plan Chief Complaint/Hosp Course IMPRESSION: 1. Chest pain, somewhat atypical symptomatology for cardiac etiology at this time given burning chest pain at rest, improved with PPI. Thus far negative troponins x3. EF 50% by echo this admit 2. Abnormal electrocardiogram with isolated T-wave inversion in aVL, assess for acute coronary syndrome. 3. Hypertension. 4. Dyslipidemia. 5. Remote tobacco intake. Recc: -Tele -continue captopril -Continue statin -Continue asa -OK to proceed with endoscopy today at moderate risk. No cardiac contraindication Problems: Consultation Date/Type/Reason Admit Date/Time Dec 15, 2016 at 05:21 Initial Consult Date 12/15/2016 Type of Consultation: Cardiology Reason for Consultation Chest pain Referring Provider: MARIAN NATION Exam/Review of Systems Vital Signs Vitals Vital Signs Date Time Temp Pulse Resp B/P Pulse Ox O2 Delivery O2 Flow Rate FiO2 12/16/16 12:13 70 12/16/16 11:19 98.1 18 111/75 96 12/15/16 20:00 Room Air 12/15/16 13:56 2.0 Intake and Output 12/15/16 12/15/16 12/16/16 15:00 23:00 07:00 Intake Total 250 ml Balance 250 ml Exam Review of Systems: CONSTITUTIONAL: No fevers, chills. PULMONARY: No sob CARDIOVASCULAR:intermittent chest pain/palpitations GASTROINTESTINAL: No nausea/vomiting. GENITOURINARY: No hematuria/dysuria. MUSCULOSKELETAL: No myagias/arthalgias. PSYCHIATRIC: The patient denies depression. NEUROLOGIC: No weakness Constitutional: alert, oriented Psych: no complaints Head: normocephalic ENMT: mucosa pink and moist Neck: jvd (9 cm water), supple Respiratory: diminished breath sounds Cardiovascular: regular rate and rhythm Gastrointestinal: non-tender, soft Musculoskeletal: muscle tone (normal) Extremities: edema (none) Neurological: other (No focal deficits) Results Result Diagram: 12/16/16 0637 12/16/16 0637 Results 24 hrs Laboratory Tests Test 12/15/16 14:45 12/15/16 21:35 12/16/16 00:55 12/16/16 06:37 Creatine Kinase 61 Creatine Kinase Index 1.0 Creatinine Kinase MB (Mass) 0.62 Troponin I < 0.012 < 0.010 < 0.012 White Blood Count 4.0 L Red Blood Count 4.67 L Hemoglobin 14.1 Hematocrit 43.1 Mean Corpuscular Volume 92.3 Mean Corpuscular Hemoglobin 30.2 Mean Corpuscular Hemoglobin Concent 32.7 Red Cell Distribution Width 13.8 Platelet Count 164 Mean Platelet Volume 10.5 H Neutrophils % 53.9 Lymphocytes % 31.8 Monocytes % 11.4 H Eosinophils % 2.3 Basophils % 0.3 Nucleated Red Blood Cells % 0.0 Neutrophils # 2.1 Lymphocytes # 1.3 Monocytes # 0.5 Eosinophils # 0.1 Basophils # 0.0 Nucleated Red Blood Cells # 0.0 Sodium Level 137 Potassium Level 4.0 Chloride Level 106 Carbon Dioxide Level 26 Anion Gap 9 Blood Urea Nitrogen 18 Creatinine 0.75 Glucose Level 87 Calcium Level 9.2 Magnesium Level 1.9 Triglycerides Level 143 Cholesterol Level 199 LDL Cholesterol, Calculated 129 HDL Cholesterol 41 Cholesterol/HDL Ratio 4.8 Free Thyroxine 0.70 L Free Triiodothyronine (T3) pg/mL 3.29 Medications Medications Current Medications Docusate Sodium (Colace) 100 mg TID PO ; Start 12/15/16 at 09:00 Metoclopramide HCl (Reglan) 10 mg Q6H PRN IV NAUSEA AND/OR VOMITING; Start 12/15 at 06:00 Nitroglycerin (Nitroglycerin (Sl Tab) 0.4 Mg) 1 tab Q5M PRN SL CHEST PAIN; Start 12/15/16 at 06:00 Acetaminophen (Tylenol Tab) 650 mg Q6H PRN PO PAIN LEVEL 1-3 OR FEVER; Start at 06:00 Oxycodone/ Acetaminophen (Percocet (5/ 325)) 1 tab Q6H PRN PO PAIN LEVEL 4-6; Start 12/15/16 at 06:00 Morphine Sulfate (morphine) 2 mg Q4H PRN IV PAIN LEVEL 7-10; Start 12/15/16 at 06:00 Enoxaparin Sodium (Lovenox) 40 mg DAILY SC Last administered on 12/15/16t 08:36 ; Admin Dose 40 MG; Start 12/15/16 at 09:00 Aspirin (Halfprin) 81 mg DAILY PO ; Start 12/16/16 at 09:00 Atorvastatin Calcium (Lipitor) 20 mg DAILY PO Last administered on 12/15/16 10: 14; Admin Dose 20 MG; Start 12/15/16 at 10:00 Pantoprazole (Protonix Tab) 40 mg DAILY@06 PO Last administered on 12/16/16 05: 55; Admin Dose 40 MG; Start 12/16/16 at 06:00 Captopril (Capoten) 12.5 mg BID PO ; Start 12/15/16 at 21:00 REED SLOAN Dec 16, 2016 12:24
--- NOTE | 2016-12-16 15:01 | PDOCDIS ---
Discharge Instructions CONDITION Patient Condition: Good HOME CARE INSTRUCTIONS: Special Diet: cardiac ACTIVITY: Activity Restrictions: No Restrictions FOLLOW UP/APPOINTMENTS Appointments Follow up with PCP as out-pt KAMARI TAVARES MD Dec 16, 2016 15:01
[2016-12-16] MEDS ORDERED: ASPI-664 PO (15:02)
[2016-12-16] MEDS ORDERED: PANT40TA4 PO (15:02)
[2016-12-16] MEDS ORDERED: CAPT12.52 PO (15:02)
[2016-12-16] MEDS ORDERED: LEVO25TA53 PO (15:25)
--- NOTE | 2016-12-16 15:51 | DS ---
DATE OF ADMISSION: 12/15/2016 DATE OF DISCHARGE: 12/16/2016 CONSULTANTS: 1. Dr. Naresh Rubio 2. Dr. Renee Thurman PROCEDURE: 2D echocardiogram, which demonstrated lower limits of normal systolic function. Normal left ventricle cavity size. Normal left ventricular wall thickness. Ejection fraction of 50% and s tage I diastolic dysfunction. Normal appearance and function of the mitral valve, with trace physio logic regurgitation. Normal appearance of tricuspid valve. DIAGNOSES: 1. Atypical chest pain. Acute coronary syndrome was ruled out by negative troponins. Cardiology w as consulted. The echocardiogram showed an ejection fraction of 50%. Lipid panels are in acceptabl e range. The patient is asymptomatic. 2. Abdominal pain. Gastroenterology was consulted. The patient is scheduled for an upper endoscop y. Continue PPI. 3. Hypothyroidism. The patient will be started on levothyroxine. MEDICATIONS: 1. Aspirin 81 mg. 2. 2.5 mg. 3. Colace 100 mg. 4. Protonix 40 mg. 5. Levothyroxine 50 mcg. ALLERGIES: NO KNOWN DRUG ALLERGIES. LABORATORY: WBC, sodium 137, potassium 4.0, chloride 106, bicarbonate 26, BUN 18, creatinine 0.75, glucose 87, calcium 9.2, magnesium 1.9. Triglycerides 143, total cholesterol 199, LDL 129, HDL 41. TSH 7.490. Free T4 0.70. Free T3 3.29. WBC 4.0, hemoglobin 14.1, hematocrit 43.1, platelets 164. HOSPITAL COURSE: This is a pleasant 71-year-old gentleman with a past medical history of hypertensi on, nicotine dependency, in remission for the past 3 years, who is noncompliant with his blood press ure medication, who presents to [facility] secondary to having substernal chest pa in and chest pain symptoms for the past 3 days, with exacerbation of the discomfort x1 day. The pat ient's troponin was found to be negative. Chest x-ray showed no . EKG showed normal sinus rhy thm. No changes consistent with acute ischemia. The patient was admitted to the telemetry floor. Gastroenterology was consulted. Patient was started on PPI and aspirin. His blood pressure was fo und to be in acceptable range. Serial troponins were found to be negative during this course of hos pitalization. The patient's abdominal discomfort improved significantly with PPIs. The patient's t hyroid panel was found to abnormal, with a TSH of 7.490 and a free T4 of 0.70. At this time I would recommend the patient should be started on thyroid supplementation At this time the patient is medi josselyn stable to be discharged home, status post upper endoscopy and after clearance by gastroenterol ogist. Dictated By: KAMARI PERALES/REKHA Conf#: [id number] DID#: [id number]
[2016-12-16] MEDS ORDERED: PROPOFOL 20 ML ONE (17:42)
[2016-12-16] MEDS ORDERED: METOCLOPRAMIDE 10 MG INJ IV PRN (18:30)
[2016-12-16] MEDS ORDERED: MEPERIDINE 25 MG INJ IV PRN (18:30)
[2016-12-16] MEDS ORDERED: DIPHENHYDRAMINE 50 MG INJ IV PRN (18:30)
[2016-12-16] MEDS ORDERED: MIDAZOLAM 1 MG/ML 2 ML INJ IV PRN (18:30)
[2016-12-16] MEDS ORDERED: FENTAnyl 50 MCG/ML VIAL IV PRN (18:30)
[2016-12-16] MEDS ORDERED: ONDANSETRON 4 MG INJ IV PRN (18:30)
--- NOTE | 2016-12-16 22:06 | GILP ---
DATE OF PROCEDURE: 12/16/2016 SURGEON: Deric Thurman MD PROCEDURE: Esophagogastroduodenoscopy with biopsies. BRIEF HISTORY AND INDICATIONS: The patient is being evaluated for atypical chest pain. PREMEDICATION: Monitored anesthesia care by anesthesiologist. SURGEON: Deric Thurman MD. DATE: 12/16/2016. INSTRUMENT USED: Olympus panendoscope following findings: TECHNIQUE: After informed consent, with the patient/relatives understanding the procedure, its indic ations, potential risks and complications, including but not limited to: allergic reaction, bleeding , perforation or infection, and after all pertinent questions were answered to the patients satisfac tion, the patient/relatives signed witnessed informed consent. Following this, premedication was ad ministered slowly IV push under careful cardiovascular and respiratory monitoring with pulse oximetr y, automatic blood pressure and radiation monitor. Once the sedative effect was achieved the patient was place in the left lateral decubitus, the panendoscope was introduced and advanced under visual contr ol. Careful examination of the upper gastrointestinal tract, both on insertion as well as withdrawal of the instrument disclosed the following findings: FINDINGS: ESOPHAGUS: The distal esophagus shows severe erythema, edema, and superficial erosion of the mucosa at the EG junction. A small hiatal hernia is present. Biopsies were obtained to rule out H. pylori infection. STOMACH: Upon entrance to the stomach air was insufflated, the gastric mcdaniel distended normally. Th e mucosa of the fundus, body, and antrum of the stomach was carefully examined. It shows erythema and edema of the mucosa of a moderate degree. Biopsies were obtained to rule out H. pylori infectio n. PYLORUS: The pylorus appears patent and within normal limits, with no evidence of gastric outlet ob struction. DUODENUM: The duodenal mucosa was carefully examined in the duodenal bulb as well as the second por tion of the duodenum and appears unremarkable with no evidence of duodenitis, ulcer or neoplasm. e instrument was then withdrawn, the patient tolerated the procedure well and was transfer out of [facility] endoscopy suite awake, and in good condition to continue recovery under observation IMPRESSION: 1. Erosive esophagitis. 2. Hiatal hernia. 3. Gastritis, rule out Helicobacter pylori infection, biopsies obtained. PLAN: The patient will be treated with PPIs. Pathology will be reviewed as soon as available, and further recommendation will depend on the patient's clinical course, as well as review of biopsies. Dictated By: DERIC THURMAN MS/REKHA Conf#: [id number] DID#: [id number] CC: Faxed Copy;*[facility]*
== END 2016-12-16 19:49 | disposition home or self-care (01) ==
LOC: E/R 03:42 → TEL 05:21
PROVIDERS: ADMIT Family Medicine; ATTEND Family Medicine
DX: R07.89 Other chest pain (principal); K29.70 Gastritis, unspecified, without bleeding; K44.9 Diaphragmatic hernia without obstruction or gangrene; K20.9 Esophagitis, unspecified; E03.9 Hypothyroidism, unspecified; J44.9 Chronic obstructive pulmonary disease, unspecified; I10 Essential (primary) hypertension; E78.5 Hyperlipidemia, unspecified; Z87.891 Personal history of nicotine dependence; Z79.82 Long term (current) use of aspirin; Z91.14 Patient's other noncompliance with medication regimen
CPT/HCPCS: 36415; 43239; 71010; 80048; 80053; 80061; 82550; 82553; 83735; 83880; 84439; 84443; 84481; 84484; 85025; 85610; 85730; 88305; 93005; 93306; 96372; J1650; Z7500; Z7502; Z7610; 88312; 88313; G0378; J2270; J2405

== ENCOUNTER 2017-08-04 08:21 | Emergency (ER) | payer MEDICARE, OTHER ==
[~2017-08-04] VITALS: Ht 160 cm; Wt 71.5 kg
[~2017-08-04 08:21] MED LIST changes: +ASPI-664 PO; +CAPT12.52 PO; -CAPT25TA3 PO; -CIPR500T4 PO; -HYDR-3498 PO; +LEVO25TA53 PO; -METR500T PO; -ONDA4TAB14 PO; +PANT40TA4 PO; -RIZA10TA24 PO; -TRAM50TA2 PO
[2017-08-04 08:26] VITALS: Ht 160 cm; Wt 71.5 kg
[2017-08-04] MEDS ORDERED: KETOROLAC 30 MG INJ IM STA (09:03)
[2017-08-04] MEDS ORDERED: IBUP-1542 PO (09:05)
--- NOTE | 2017-08-04 09:07 | ERD ---
ER Documentation Chief Complaint Chief Complaint ap since yesterday HPI 71 here for mild suprapubic discomfort which has been constant for less than 24 hours. He has a history of BPH and saw his urologist just yesterday who informed him that he has mild hematuria and prescribed him some antibiotics, which the patient states he has been using. The patient also states yesterday he did some exercises at home specifically targeting the lower rectus abdominis muscles. Patient denies fevers or chills, no chest pain or shortness of breath , no penile discharge, no complaints of chest pain or shortness of breath. Patient states the pain is mild, constant, nonradiating and nonexertional. ROS All systems reviewed and are negative except as per history of present illness. Medications Home Meds Active Scripts Ibuprofen* (Ibuprofen*) 600 Mg Tablet, 600 MG PO Q8 for PAIN AND/OR INFLAMMATION , #30 TAB Prov:DONNY CM MD 08/04/17 Levothyroxine Sodium* (Levothyroxine Sodium*) 25 Mcg Tablet, 25 MCG PO BEFORE BREAKFAST, #30 TAB Prov:KAMARI TAVARES MD 12/16/16 Pantoprazole* (Pantoprazole*) 40 Mg Tablet., 40 MG PO BID, #60 Prov:KAMARI TAVARES MD 12/16/16 Aspirin* (Aspirin* EC) 81 Mg Tablet., 81 MG PO DAILY, #30 Prov:KAMARI TAVARES MD 12/16/16 Captopril* (Captopril*) 12.5 Mg Tablet, 12.5 MG PO BID, #60 TAB Prov:KAMARI TAVARES MD 12/16/16 Docusate Sodium* (Colace*) 100 Mg Capsule, 100 MG PO TID, #30 CAP Prov:JOSE ANTONIO KILGORE DO 04/23/16 Allergies Allergies: Coded Allergies: No Known Drug Allergies (Verified Allergy, Unknown, 12/15/16) PMhx/Soc Gastritis, hiatal hernia, hypertension, hypothyroidism, BPH History of Surgery: No Anesthesia Reaction: No Hx Neurological Disorder: No Hx Respiratory Disorders: Yes (COPD) Hx Cardiac Disorders: Yes (CHEST PAIN, HTN) Hx Psychiatric Problems: No Hx Miscellaneous Medical Probl: Yes (ANEMIA, CHRONIC BACK PAIN) Hx Alcohol Use: No Hx Substance Use: No Hx Tobacco Use: Yes Smoking Status: Former smoker Physical Exam Vitals Vital Signs Date Time Temp Pulse Resp B/P Pulse Ox O2 Delivery O2 Flow Rate FiO2 08/04/17 09:28 76 18 116/65 99 Room Air 08/04/17 08:26 98.6 80 18 102/59 99 Physical Exam GENERAL: Well-developed, well-nourished, well-hydrated, in no apparent distress , looks nontoxic in appearance HEENT: Moist mucous membranes, pink conjunctiva, no cervical spine tenderness or step-off deformities, no goiter, no jaundice or icterus, extraocular movements intact without pain. No submandibular induration, and no pharyngeal erythema NEURO: Alert and oriented 3, cranial nerves II through XII intact bilaterally, pupils equal round reactive to light, no focal deficits or facial asymmetry, sensation intact distally Strength 5/5 in upper and lower extremities bilaterally CARDIAC: Regular rate and rhythm, no murmurs rubs or gallops LUNGS: Clear bilaterally no wheezing crackles or stridor ABDOMEN: Soft nontender, no guarding, no rigidity, no rebound, no psoas sign no obturator sign. Normoactive bowel sounds SKIN: Warm and dry to touch, no abrasions, contusions, or hematomas, no lacerations, no ecchymosis, no target lesions, and without ulcers EXTREMITIES: No clubbing cyanosis or edema, calves are bilaterally symmetrical, no Homans sign, no popliteal cord sign. Distal pulses equal and bilateral PSYCH: Normal affect without agitation or irritability Results 24 hrs Current Medications Medications (Trade) Dose Ordered Sig/Frank Route PRN Reason Start Time Stop Time Status Last Admin Dose Admin Ketorolac Tromethamine (Toradol) 30 mg ONCE STAT IM 08/04/17 09:03 08/04/17 09:05 DC 08/04/17 09:08 Procedures/MDM I administered Toradol 30 mg IM 1 for pain control. Urine cultures have been ordered results are pending I will follow-up. Patient's symptoms sound benign and physical examination is unremarkable, he has multiple reasons to be experiencing mild suprapubic discomfort including BPH , hemorrhagic cystitis, and muscle strain given yesterday's exercise. I told the patient to just relax and use his medications as prescribed and I will be prescribing him ibuprofen to use as needed for the next few days, if symptoms continue despite antibiotics and analgesics he may return here for further evaluation. At a later date he may be a better candidate for further imaging, but he does have a urologist and a PMD which she sees on a regular basis who can also order imaging studies if indicated. Differential diagnoses considered, included but not limited to acute coronary syndrome, pulmonary embolism, aortic dissection, abdominal aortic aneurysm, sepsis, stroke, meningitis, encephalitis, pneumonia, appendicitis, cholecystitis , bowel obstruction, pyelonephritis, nephrolithiasis, cystitis, as well as metabolic, hematologic, and electrolyte abnormalities. As well as abscess, cellulitis, fractures, and dislocations. Patient feels much better at this time, and vital signs are normal, symptoms have improved. I did give strict instructions to return to the ED if symptoms continue or worsen, patient will otherwise follow-up with primary care physician. Patient understood instructions and agreed to plan. Disclaimer: Inadvertent spelling and grammatical errors are likely due to EHR/ dictation software use and do not reflect on the overall quality of patient care. Also, please note that the electronic time recorded on this note does not necessarily reflect the actual time of the patient encounter. Departure Diagnosis: Primary Impression: UTI (urinary tract infection) Urinary tract infection type: acute cystitis Hematuria presence: with hematuria Qualified Code: N30.01 - Acute cystitis with hematuria Additional Impressions: BPH (benign prostatic hyperplasia) Lower urinary tract symptom presence: symptoms present Lower urinary tract symptom detail: unspecified Qualified Code: N40.1 - Benign prostatic hyperplasia with lower urinary tract symptoms, symptom details unspecified Strain of rectus abdominis muscle Encounter type: initial encounter Qualified Code: S39.011A - Strain of rectus abdominis muscle, initial encounter Condition: Good Patient Instructions: Bph (Enlarged Prostate), Bladder Infection, Male (Adult) DONNY CM MD Aug 04, 2017 09:07
[2017-08-04 09:28] VITALS: BP 116/65; PULSE 76; RESP 18
== END 2017-08-04 09:31 | disposition home or self-care (01) ==
LOC: E/R 08:21
DX: N39.0 Urinary tract infection, site not specified (principal); N40.1 Benign prostatic hyperplasia with lower urinary tract symptoms; J44.9 Chronic obstructive pulmonary disease, unspecified; I10 Essential (primary) hypertension; E03.9 Hypothyroidism, unspecified; Z87.891 Personal history of nicotine dependence
CPT/HCPCS: 87086; 96372; 99284; J1885

== ENCOUNTER 2018-01-29 11:40 | Emergency (ER) | END 2018-01-29 13:39 | disposition home or self-care (01) ==

== ENCOUNTER 2018-05-20 20:53 | Emergency (ER) | END 2018-05-20 23:36 | disposition home or self-care (01) ==

== ENCOUNTER 2018-07-03 06:42 | Emergency (ER) | END 2018-07-03 11:18 | disposition home or self-care (01) ==

== ENCOUNTER 2018-09-08 22:22 | Emergency (ER) | END 2018-09-08 22:30 | disposition left against medical advice (07) ==

== ENCOUNTER 2018-11-28 05:30 | Observation (INO) | payer MEDICARE, OTHER ==
[~2018-11-28] VITALS: Ht 170.2 cm; Wt 71.7 kg
[~2018-11-28 05:30] MED LIST changes: +ACET500C5 PO; +AMOX500C2 PO; -ASPI-664 PO; +ASPI-817 PO; +IBUP-1542 PO; -LEVO25TA53 PO; +LEVO25TA6 PO
[2018-11-28] MEDS ORDERED: BELLADONNA/PHENOBARBITAL TAB PO STA (06:16)
[2018-11-28] MEDS ORDERED: SOD CHLORIDE 0.9% 500 ML IV STA (06:16)
[2018-11-28] MEDS ORDERED: KETOROLAC 15 MG INJ IV STA (06:16)
[2018-11-28] MEDS ORDERED: ONDANSETRON 4 MG INJ IV STA (06:16)
[2018-11-28] MEDS ORDERED: LIDOCAINE/MYLANTA 40 ML BTL PO STA (06:16)
[2018-11-28] MEDS ORDERED: CAPT25TA3 PO (06:57)
[2018-11-28] MEDS ORDERED: RIZA10TA24 PO (07:00)
[2018-11-28] MEDS ORDERED: FENO67CA PO (07:00)
[2018-11-28] MEDS ORDERED: ASPI81TA52 PO (07:01)
[2018-11-28] MEDS ORDERED: ERGO500013 PO (07:04)
--- NOTE | 2018-11-28 08:10 | ERD ---
ER Documentation Chief Complaint Chief Complaint abdominal pain since yesterday HPI 73-year-old man complains of suprapubic and left lower quadrant abdominal pain times 2 days, he does have a history of BPH and urinary tract infection and suspects UTI although he denies dysuria or hematuria. Patient denies fevers or chills, no chest pain or shortness of breath, no vomiting or diarrhea. Patient states the pain is nonradiating and nonexertional. ROS All systems reviewed and are negative except as per history of present illness. Medications Home Meds Reported Medications Ergocalciferol (Vitamin D2) (VITAMIN D2) 50,000 Unit Capsule, 45540 UNIT PO EVERY 7 DAYS, CAP PT DOSENT KNOW WHICH DAY 11/28/18 Aspirin (Low Dose Aspirin) 81 Mg Tablet.dr, 81 MG PO DAILY, #30 TAB 11/28/18 Fenofibrate, Micronized (Fenofibrate) 67 Mg Capsule, 67 MG PO DAILY, CAP 11/28/18 Rizatriptan Benzoate (Rizatriptan Benzoate) 10 Mg Tab.rapdis, 10 MG PO BID PRN for MIGRAINE, TAB may repeat after 2 hours, MAX 30 mg/24 hour 11/28/18 Captopril* (Captopril*) 25 Mg Tablet, 25 MG PO DAILY, #60 TAB 11/28/18 Discontinued Scripts Acetaminophen* (Tylophen*) 500 Mg Capsule, 1 CAP PO Q6H PRN for PAIN AND OR ELEVATED TEMP, #20 CAP Prov:DESHAUN SPRAGUEC 05/20/18 Amoxicillin* (Amoxicillin*) 500 Mg Cap, 500 MG PO BID, #20 CAP Prov:SARAH SALASC 01/29/18 Ibuprofen* (Ibuprofen*) 600 Mg Tablet, 600 MG PO Q8 for PAIN AND/OR INFLAMMATION, #30 TAB Prov:DONNY CM MD 08/04/17 Levothyroxine Sodium* (Levothyroxine Sodium*) 25 Mcg Tablet, 25 MCG PO BEFORE BREAKFAST, #30 TAB Prov:KAMARI TAVARES MD 12/16/16 Pantoprazole* (Pantoprazole*) 40 Mg Tablet., 40 MG PO BID, #60 Prov:KAMARI TAVARES MD 12/16/16 Aspirin* (Aspirin* EC) 81 Mg Tablet., 81 MG PO DAILY, #30 Prov:KAMARI TAVARES MD 12/16/16 Captopril* (Captopril*) 12.5 Mg Tablet, 12.5 MG PO BID, #60 TAB Prov:KAMARI TAVARES MD 12/16/16 Docusate Sodium* (Colace*) 100 Mg Capsule, 100 MG PO TID, #30 CAP Prov:JOSE ANTONIO KILGORE DO 04/23/16 Allergies Allergies: Coded Allergies: No Known Drug Allergies (Verified Allergy, Unknown, 07/03/18) PMhx/Soc Hypertension, BPH History of Surgery: No Anesthesia Reaction: No Hx Neurological Disorder: No Hx Respiratory Disorders: Yes (COPD) Hx Cardiac Disorders: Yes ( HTN) Hx Psychiatric Problems: No Hx Miscellaneous Medical Probl: Yes (ANEMIA, CHRONIC BACK PAIN) Hx Alcohol Use: No Hx Substance Use: No Hx Tobacco Use: No Smoking Status: Never smoker Physical Exam Vitals Vital Signs Date Temp Pulse Resp B/P (MAP) Pulse Ox O2 O2 Flow FiO2 Time Delivery Rate 11/28/18 77 24 118/82 96 Room Air 06:23 (94) 11/28/18 98.2 93 18 130/71 97 05:32 (90) Physical Exam GENERAL: Well-developed, well-nourished, well-hydrated, in no apparent distress, looks nontoxic in appearance HEENT: Moist mucous membranes, pink conjunctiva, no cervical spine tenderness or step-off deformities, no goiter, no jaundice or icterus, extraocular movements intact without pain. No submandibular induration, and no pharyngeal erythema NEURO: Alert and oriented 3, cranial nerves II through XII intact bilaterally, pupils equal round reactive to light, no focal deficits or facial asymmetry, sensation intact distally Strength 5/5 in upper and lower extremities bilaterally CARDIAC: Regular rate and rhythm, no murmurs rubs or gallops LUNGS: Clear bilaterally no wheezing crackles or stridor ABDOMEN: Mild tenderness over the suprapubic and left lower quadrant, voluntary guarding, no rigidity or masses SKIN: Warm and dry to touch, no abrasions, contusions, or hematomas, no la cerations, no ecchymosis, no target lesions, and without ulcers EXTREMITIES: No clubbing cyanosis or edema, calves are bilaterally symmetrical, no Homans sign, no popliteal cord sign. Distal pulses equal and bilateral PSYCH: Normal affect without agitation or irritability Result Diagram: 11/28/18 0629 11/28/18 0623 Results 24 hrs Laboratory Tests Test 11/28/18 06:23 11/28/18 06:29 Sodium Level 141 mmol/L Potassium Level 4.0 mmol/L Chloride Level 106 mmol/L Carbon Dioxide Level 28 mmol/L Anion Gap 7 Blood Urea Nitrogen 12 mg/dl Creatinine 0.79 mg/dl Est Glomerular Filtrat Rate mL/min mL/min Glucose Level 107 mg/dl Calcium Level 9.3 mg/dl Total Bilirubin 0.9 mg/dl Direct Bilirubin 0.00 mg/dl Indirect Bilirubin 0.9 mg/dl Aspartate Amino Transf (AST/SGOT) 15 IU/L Alanine Aminotransferase (ALT/SGPT) 18 IU/L Alkaline Phosphatase 41 IU/L Troponin I < 0.012 ng/ml Total Protein 6.7 g/dl Albumin 3.9 g/dl Globulin 2.80 g/dl Albumin/Globulin Ratio 1.39 Lipase 44 U/L White Blood Count 7.8 10^3/ul Red Blood Count 4.55 10^6/ul Hemoglobin 13.9 g/dl Hematocrit 42.2 % Mean Corpuscular Volume 92.7 fl Mean Corpuscular Hemoglobin 30.5 pg Mean Corpuscular Hemoglobin Concent 32.9 g/dl Red Cell Distribution Width 13.7 % Platelet Count 159 10^3/UL Mean Platelet Volume 9.9 fl Immature Granulocytes % 0.400 % Neutrophils % 69.4 % Lymphocytes % 14.5 % Monocytes % 15.0 % Eosinophils % 0.4 % Basophils % 0.3 % Nucleated Red Blood Cells % 0.0 /100WBC Immature Granulocytes # 0.030 10^3/ul Neutrophils # 5.4 10^3/ul Lymphocytes # 1.1 10^3/ul Monocytes # 1.2 10^3/ul Eosinophils # 0.0 10^3/ul Basophils # 0.0 10^3/ul Nucleated Red Blood Cells # 0.0 10^3/ul Urine Color YELLOW Urine Clarity CLEAR Urine pH 7.0 Urine Specific [place] 1.024 Urine Ketones NEGATIVE mg/dL Urine Nitrite NEGATIVE mg/dL Urine Bilirubin NEGATIVE mg/dL Urine Urobilinogen NEGATIVE mg/dL Urine Leukocyte Esterase NEGATIVE Elizabeth/ul Urine Microscopic RBC 6 /HPF Urine Microscopic WBC 1 /HPF Urine Mucus MODERATE /HPF Urine Hemoglobin 1+ mg/dL Urine Glucose NEGATIVE mg/dL Urine Total Protein NEGATIVE mg/dl Current Medications Medications Dose Sig/Frank Start Time Status Last (Trade) Ordered Route PRN Stop Time Admin Dose Reason Admin Sodium 500 ml @ Q1H STAT 11/28/18 DC 11/28/18 Chloride 500 mls/hr IV 06:16 06:56 11/28/18 07:15 Ondansetron 4 mg ONCE STAT 11/28/18 DC 11/28/18 HCl (Zofran IV 06:16 06:56 Inj) 11/28/18 06:50 40 ml ONCE STAT 11/28/18 DC 11/28/18 Miscellaneous PO 06:16 06:56 Medication 11/28/18 06:50 (Gi Cocktail (2)) Belladonna/ 2 tab ONCE STAT 11/28/18 DC 11/28/18 Phenobarbital PO 06:16 07:55 () 11/28/18 06:50 Ketorolac 15 mg ONCE STAT 11/28/18 DC 11/28/18 Tromethamine IV 06:16 06:57 (Toradol) 11/28/18 06:50 Ceftriaxone 50 ml @ ONCE ONCE 11/28/18 UNV Sodium 100 mls/hr IVPB 08:30 11/28/18 08:59 100 ml @ ONCE ONCE 11/28/18 UNV Metronidazole 100 mls/hr IVPB 08:30 11/28/18 09:29 Procedures/MDM IV line was established patient was placed on monitoring specialist rhythm strip revealed a sinus rhythm at about 80 bpm with upright P and T waves. Patient was afebrile Insert 500 cc normal saline IV, Toradol 15 mg IV, Zofran 4 mg IV, GI cocktail p.o. CBC and electrolytes are normal, liver function tests were normal, urinalysis negative for infection. Troponin was negative CT scan of the abdomen and pelvis was performed,IMPRESSION: 1. Uncomplicated diverticulitis of the sigmoid colon. No evidence of bowel perforation, no abscess. 2. Moderate underlying diverticulosis of the left colon. 3. Small hiatal hernia and tiny fat containing umbilical hernia. 4. Bilateral renal cortical cysts. 5. Emphysema. 6. Mild aortic atherosclerosis. I administered ceftriaxone 1 g IV and metronidazole 500 mg IV. Patient has continued tenderness over the lower abdomen and remains symptomatic, he will be admitted to MedSurg for continued medical management, IV antibiotics, and surgical consultation if later indicated although this will be deferred to admitting team Departure Diagnosis: Primary Impression: Acute diverticulitis Condition: DONNY Beatty MD Nov 28, 2018 08:10
[2018-11-28] MEDS ORDERED: metroNIDAZOLE 500 MG/NS (PMX) 100 ML IVPB ONE (08:30)
[2018-11-28] MEDS ORDERED: CEFTRIAXONE 1 GM/50 ML (PMX) 50 ML IVPB ONE (08:30)
--- NOTE | 2018-11-28 11:31 | HP ---
Date/Time of Note Date/Time of Note DATE: 11/28/18 TIME: 11:31 Assessment/Plan VTE Prophylaxis Pharmacological prophylaxis: LMWH Lines/Catheters IV Catheter Type (from [facility]): Peripheral IV Assessment/Plan Hospital Course 73-year-old male with comorbidities including hypertension, dyslipidemia, and COPD who came to the emergency room with chief complaint of abdominal pain with CT evidence of sigmoid diverticulitis, who will be admitted to inpatient setting for further treatment and evaluation. 1. Uncomplicated diverticulitis of the sigmoid colon. -Keep the patient n.p.o. -Continue IV fluids. -Start the patient on appropriate antimicrobials (Cipro plus Flagyl). -Patient needs eventual colonoscopy in 6-8 weeks. 2. Hypertension. -Resume antihypertensives. 3. Emphysema. -No evidence of any acute exacerbation -Continue PRN JEANNA. 4. Dyslipidemia. -Obtain fasting lipid panel. Plan: The patient will be admitted to inpatient medical surgical floor. The patient will be kept n.p.o. The patient will be started on DVT prophylaxis. The patient will remain a full code. Activities will be as tolerated. The rest of the patient's management will be based on the clinical course and the results of diagnostic studies. The patient was seen in collaboration with Dr. Singh. Result Diagram: 11/28/18 0629 11/28/18 0623 Results 24hrs Laboratory Tests Test 11/28/18 06:23 11/28/18 06:29 Sodium Level 141 Potassium Level 4.0 Chloride Level 106 Carbon Dioxide Level 28 Anion Gap 7 Blood Urea Nitrogen 12 Creatinine 0.79 Est Glomerular Filtrat Rate mL/min Glucose Level 107 Calcium Level 9.3 Total Bilirubin 0.9 Direct Bilirubin 0.00 Indirect Bilirubin 0.9 Aspartate Amino Transf (AST/SGOT) 15 Alanine Aminotransferase (ALT/SGPT) 18 Alkaline Phosphatase 41 L Troponin I < 0.012 Total Protein 6.7 Albumin 3.9 Globulin 2.80 Albumin/Globulin Ratio 1.39 Lipase 44 White Blood Count 7.8 # Red Blood Count 4.55 L Hemoglobin 13.9 L Hematocrit 42.2 Mean Corpuscular Volume 92.7 Mean Corpuscular Hemoglobin 30.5 Mean Corpuscular Hemoglobin Concent 32.9 Red Cell Distribution Width 13.7 Platelet Count 159 Mean Platelet Volume 9.9 Immature Granulocytes % 0.400 Neutrophils % 69.4 Lymphocytes % 14.5 L Monocytes % 15.0 H Eosinophils % 0.4 Basophils % 0.3 Nucleated Red Blood Cells % 0.0 Immature Granulocytes # 0.030 Neutrophils # 5.4 Lymphocytes # 1.1 Monocytes # 1.2 H Eosinophils # 0.0 Basophils # 0.0 Nucleated Red Blood Cells # 0.0 Urine Color YELLOW Urine Clarity CLEAR Urine pH 7.0 Urine Specific [place] 1.024 Urine Ketones NEGATIVE Urine Nitrite NEGATIVE Urine Bilirubin NEGATIVE Urine Urobilinogen NEGATIVE Urine Leukocyte Esterase NEGATIVE Urine Microscopic RBC 6 H Urine Microscopic WBC 1 Urine Mucus MODERATE Urine Hemoglobin 1+ H Urine Glucose NEGATIVE Urine Total Protein NEGATIVE HPI/ROS Admit Date/Time Admit Date/Time Hx of Present Illness This is a 73-year-old male with a past medical history of hypertension, COPD, and dyslipidemia. The patient started having abdominal pain for the past 2 days, located in the suprapubic and left quadrant area. The patient also verbalized febrile illness. The patient denied any nausea, vomiting, diarrhea, or hematochezia. He denied any relieving or exacerbating factors. In the emergency room, the patient underwent a CT scan of the abdomen and pelvis that was showing diverticulitis of the sigmoid colon with no evidence of bowel perforation or abscess. The patient's WBC was within normal limits. The patient was started on IV antibiotics in the emergency room. ROS Constitutional: febrile Eyes: no complaints ENT: no complaints Respiratory: no complaints Cardiovascular: no complaints Gastrointestinal: pain Genitourinary: no complaints Musculoskeletal: no complaints Skin: no complaints Neurologic: no complaints Endocrine: no complaints Lymphatic: no complaints Psychological: no complaints Immunologic: no complaints PMH/Family/Social Past Medical History 1. Hypertension. 2. Dyslipidemia. 3. COPD. Coded Allergies: No Known Drug Allergies (Verified Allergy, Unknown, 07/03/18) Past Surgical History Past Surgical Hx: no surgical history Family History Significant Family History: no pertinent family hx Social History The patient lives at home. Smoking Status: Former smoker Drug Use: none Exam/Review of Systems Vital Signs Vitals Vital Signs Date Temp Pulse Resp B/P (MAP) Pulse Ox O2 O2 Flow FiO2 Time Delivery Rate 11/28/18 67 16 121/61 97 Room Air 08:49 (81) 11/28/18 98.2 05:32 Exam Exam General: Adequately build 73 year-old male lying in bed in no apparent distress. HEENT: Normocephalic, atraumatic. Eyes: Anicteric sclerae, conjunctivae clear. ENT: Nasal septum midline, oral mucosa moist. Neck supple, no JVD noticed. Respiratory: Bilaterally diminished breath sounds. No use of accessory muscles of respiration. Cardiovascular: S1, S2 heard. Regular rate and rhythm. Abdomen: Soft and nondistended. Tenderness to palpation in the left lower quadrant and suprapubic area. Bowel sounds positive in all 4 quadrants. Genitourinary: Deferred. Extremities: No cyanosis, no clubbing, no edema. Peripheral pulses palpable. Neurologic: Cranial nerves II through XII grossly intact. The patient is awake, alert, and oriented. Skin: Normal skin turgor. No skin rashes. Additional Comments CT Abdomen & Pelvis IMPRESSION: 1. Uncomplicated diverticulitis of the sigmoid colon. No evidence of bowel perforation, no abscess. 2. Moderate underlying diverticulosis of the left colon. 3. Small hiatal hernia and tiny fat containing umbilical hernia. 4. Bilateral renal cortical cysts. 5. Emphysema. 6. Mild aortic atherosclerosis. NATALIO ENCINAS NP Nov 28, 2018 11:31
[2018-11-28] MEDS ORDERED: NACL 0.9% 3 ML SYG IV SCH (12:00)
[2018-11-28] MEDS ORDERED: ACETAMINOPHEN 325 MG TAB PO PRN (12:00)
[2018-11-28] MEDS: metroNIDAZOLE 500 MG/NS (PMX) 100 ML IVPB SCH ×3 (13:05→22:31)
[2018-11-28] MEDS: HYDROCODONE/APAP (5/325) TAB PO PRN ×2 (15:24→22:31)
[2018-11-28] MEDS ORDERED: ALBUTEROL 0.083% (NEB) 2.5 MG/3 ML AMP HHN PRN (16:30)
[2018-11-28] MEDS: LISINOPRIL 5 MG TAB PO SCH (16:39)
[2018-11-28 18:16] VITALS: BP 124/78; PULSE 58; RESP 18
[2018-11-28 19:16] VITALS: Ht 170.2 cm; Wt 71.7 kg
[2018-11-28] MEDS: CIPROFLOXACIN 400MG/D5W 200 ML IVPB SCH (21:04)
[2018-11-28 22:28] VITALS: BP 112/66; PULSE 63; RESP 18
[2018-11-29 02:17] VITALS: BP 108/57; PULSE 70; RESP 18
[2018-11-29] MEDS: metroNIDAZOLE 500 MG/NS (PMX) 100 ML IVPB SCH ×3 (06:02→22:21)
[2018-11-29 08:24] VITALS: BP 111/63; PULSE 76; RESP 18
[2018-11-29] MEDS: LISINOPRIL 5 MG TAB PO SCH (09:00)
[2018-11-29] MEDS: ASPIRIN (EC) 81 MG TAB PO SCH (09:37)
[2018-11-29] MEDS: ENOXAPARIN 40 MG/0.4 ML SYG SC SCH (09:53)
[2018-11-29] MEDS: CIPROFLOXACIN 400MG/D5W 200 ML IVPB SCH ×2 (09:58→21:25)
[2018-11-29] MEDS: SOD CHLORIDE 0.9% 1,000 ML IV SCH ×2 (10:11→17:16)
--- NOTE | 2018-11-29 14:57 | PN ---
Date/Time of Note Date/Time of Note DATE: 11/29/18 TIME: 14:54 Assessment/Plan VTE Prophylaxis Risk score (from Ns)>0 risk: 2 SCD applied (from Ns): No SCD contraindicated: other Pharmacological prophylaxis: LMWH Lines/Catheters IV [facility]from [facility]): Peripheral IV Assessment/Plan Hospital Course SUBJECTIVE: Complains of headache. Denies any abdominal pain. OBJECTIVE: Physical Exam General: Adequately build 73 year-old male lying in bed in no apparent distress. HEENT: Normocephalic, atraumatic. Eyes: Anicteric sclerae, conjunctivae clear. ENT: Nasal septum midline, oral mucosa moist. Neck supple, no JVD noticed. Respiratory: Bilaterally diminished breath sounds. No use of accessory muscles of respiration. Cardiovascular: S1, S2 heard. Regular rate and rhythm. Abdomen: Soft and nondistended. Minimal tenderness to palpation in the left lower quadrant and suprapubic area. Bowel sounds positive in all 4 quadrants. Genitourinary: Deferred. Extremities: No cyanosis, no clubbing, no edema. Peripheral pulses palpable. Neurologic: Cranial nerves II through XII grossly intact. The patient is awake, alert, and oriented. Skin: Normal skin turgor. No skin rashes. Labs & Vitals per chart ASSESSMENT & PLAN 73-year-old male with comorbidities including hypertension, dyslipidemia, and COPD who came to the emergency room with chief complaint of abdominal pain with CT evidence of sigmoid diverticulitis, who was admitted to inpatient setting for further treatment and evaluation. 1. Uncomplicated diverticulitis of the sigmoid colon. -Continue IV fluids. -Continue the patient on appropriate antimicrobials (Cipro plus Flagyl). -Start clear liquids. -Patient needs eventual colonoscopy in 6-8 weeks. 2. Hypertension. -Continue antihypertensives. 3. Emphysema. -No evidence of any acute exacerbation -Continue PRN JEANNA. 4. Dyslipidemia. -Fasting lipid panel satisfactory. 5. Fluids, electrolytes, and nutrition. -Start clear liquids. 6. DVT prophylaxis. -Subcutaneous Lovenox. 7. Plan. -Start clear liquid diet. -Advance diet as tolerated. -Await clinical improvement. The patient was seen in collaboration with Dr. Singh. Result Diagram: 11/29/1820 11/29/18 0520 Results 24hrs Laboratory Tests Test 11/29/18 05:20 White Blood Count 4.4 #L Red Blood Count 4.30 L Hemoglobin 13.3 L Hematocrit 40.3 L Mean Corpuscular Volume 93.7 Mean Corpuscular Hemoglobin 30.9 Mean Corpuscular Hemoglobin Concent 33.0 Red Cell Distribution Width 13.5 Platelet Count 147 Mean Platelet Volume 10.5 H Immature Granulocytes % 0.200 Neutrophils % 56.0 Lymphocytes % 25.7 Monocytes % 15.8 H Eosinophils % 1.6 Basophils % 0.7 Nucleated Red Blood Cells % 0.0 Immature Granulocytes # 0.010 Neutrophils # 2.4 Lymphocytes # 1.1 Monocytes # 0.7 Eosinophils # 0.1 Basophils # 0.0 Nucleated Red Blood Cells # 0.0 Sodium Level 141 Potassium Level 4.1 Chloride Level 103 Carbon Dioxide Level 27 Anion Gap 11 Blood Urea Nitrogen 15 Creatinine 0.75 Est Glomerular Filtrat Rate mL/min Glucose Level 73 Calcium Level 9.0 Phosphorus Level 2.8 Magnesium Level 2.0 Total Bilirubin 0.6 Direct Bilirubin 0.00 Indirect Bilirubin 0.6 Aspartate Amino Transf (AST/SGOT) 15 Alanine Aminotransferase (ALT/SGPT) 17 Alkaline Phosphatase 33 L Total Protein 6.2 Albumin 3.5 Globulin 2.70 Albumin/Globulin Ratio 1.29 Triglycerides Level 93 Cholesterol Level 156 LDL Cholesterol, Calculated 93 HDL Cholesterol 44 Cholesterol/HDL Ratio 3.5 Exam/Review of Systems Exam Vitals Vital Signs Date Temp Pulse Resp B/P (MAP) Pulse Ox O2 O2 Flow FiO2 Time Delivery Rate 11/29/18 98.3 76 18 111/63 97 Room Air 08:24 (79) Intake and Output 11/28/18 11/28/18 11/29/18 1515:00 23:00 07:00 IntakeIntake Total 100 ml BalanceBalance 100 ml Results Results 24hrs Laboratory Tests Test 11/29/18 05:20 White Blood Count 4.4 #L Red Blood Count 4.30 L Hemoglobin 13.3 L Hematocrit 40.3 L Mean Corpuscular Volume 93.7 Mean Corpuscular Hemoglobin 30.9 Mean Corpuscular Hemoglobin Concent 33.0 Red Cell Distribution Width 13.5 Platelet Count 147 Mean Platelet Volume 10.5 H Immature Granulocytes % 0.200 Neutrophils % 56.0 Lymphocytes % 25.7 Monocytes % 15.8 H Eosinophils % 1.6 Basophils % 0.7 Nucleated Red Blood Cells % 0.0 Immature Granulocytes # 0.010 Neutrophils # 2.4 Lymphocytes # 1.1 Monocytes # 0.7 Eosinophils # 0.1 Basophils # 0.0 Nucleated Red Blood Cells # 0.0 Sodium Level 141 Potassium Level 4.1 Chloride Level 103 Carbon Dioxide Level 27 Anion Gap 11 Blood Urea Nitrogen 15 Creatinine 0.75 Est Glomerular Filtrat Rate mL/min Glucose Level 73 Calcium Level 9.0 Phosphorus Level 2.8 Magnesium Level 2.0 Total Bilirubin 0.6 Direct Bilirubin 0.00 Indirect Bilirubin 0.6 Aspartate Amino Transf (AST/SGOT) 15 Alanine Aminotransferase (ALT/SGPT) 17 Alkaline Phosphatase 33 L Total Protein 6.2 Albumin 3.5 Globulin 2.70 Albumin/Globulin Ratio 1.29 Triglycerides Level 93 Cholesterol Level 156 LDL Cholesterol, Calculated 93 HDL Cholesterol 44 Cholesterol/HDL Ratio 3.5 Medications Medication Current Medications IV Flush (NS 3 ml) 3 ml PER PROTOCOL IV ; Start 11/28/18 at 12:00 Acetaminophen (Tylenol Tab) 650 mg Q6H PRN PO .PAIN 1-3 OR TEMP Last administered on 11/29/18 13:01; Admin Dose 650 MG; Start 11/28/18 at 12:00 Acetaminophen/ Hydrocodone Bitart ([place] (5/325)) 1 tab Q6H PRN PO .MOD PAIN 4- 6 Last administered on 11/28/18 22:31; Admin Dose 1 TAB; Start 11/28/18 at 12:00 Enoxaparin Sodium (Lovenox) 40 mg DAILY SC Last administered on 11/29/18 09:53; Admin Dose 40 MG; Start 11/29/18 at 09:00 Ciprofloxacin/ Dextrose 200 ml @ 200 mls/hr Q12 IVPB Last administered on 11/29/18 09:58; Admin Dose 200 MLS/HR; Start 11/28/18 at 21:00 Metronidazole 100 ml @ 100 mls/hr Q8 IVPB Last administered on 11/29/18 13:00; Admin Dose 100 MLS/HR; Start 11/28/18 at 14:00 Aspirin (Halfprin) 81 mg DAILY PO Last administered on 11/29/18 09:37; Admin Dose 81 MG; Start 11/29/18 at 09:00 Lisinopril (Zestril) 5 mg DAILY PO Last administered on 3/19/19at 16:39; Admin Dose 5 MG; Start 11/28/18 at 14:00 Albuterol (Proventil 0.083% (Neb)) 2.5 mg Q6H RESP THERAPY PRN HHN SHORTNESS OF BREATH; Start 11/28/18 at 16:30 Sodium Chloride 1,000 ml @ 75 mls/hr [id number] IV Last administered on 11/29/18at 10:11; Admin Dose 75 MLS/HR; Start 11/29/18 at 10:00 NATALIO ENCINAS NP Nov 29, 2018 14:57
[2018-11-29 15:41] VITALS: BP 115/61; PULSE 76; RESP 18
[2018-11-29 16:18] VITALS: BP 118/74; PULSE 66; RESP 18
[2018-11-29 20:10] VITALS: BP 133/83; PULSE 58; RESP 18
[2018-11-29] MEDS ORDERED: ONDANSETRON 4 MG INJ IV PRN (22:30)
[2018-11-29] MEDS: HYDROCODONE/APAP (5/325) TAB PO PRN (23:32)
[2018-11-30] MEDS ORDERED: PANTOPRAZOLE (EC) 40 MG TAB PO ONE
[2018-11-30] MEDS ORDERED: AL HYDROX/MG HYDROX/SIMETH 30 ML CUP PO PRN
[2018-11-30 00:57] VITALS: BP 113/59; PULSE 76; RESP 18
[2018-11-30] MEDS: metroNIDAZOLE 500 MG/NS (PMX) 100 ML IVPB SCH (05:44)
[2018-11-30] MEDS ORDERED: PANTOPRAZOLE (EC) 40 MG TAB PO SCH (06:00)
[2018-11-30 07:52] VITALS: BP 105/59; PULSE 62; RESP 18
[2018-11-30] MEDS: SOD CHLORIDE 0.9% 1,000 ML IV SCH (08:58)
[2018-11-30] MEDS: CIPROFLOXACIN 400MG/D5W 200 ML IVPB SCH (08:59)
[2018-11-30] MEDS: LISINOPRIL 5 MG TAB PO SCH (08:59)
[2018-11-30] MEDS: ASPIRIN (EC) 81 MG TAB PO SCH (08:59)
[2018-11-30] MEDS: ENOXAPARIN 40 MG/0.4 ML SYG SC SCH (09:08)
[2018-11-30] MEDS ORDERED: CIPR500T4 PO (11:09)
[2018-11-30] MEDS ORDERED: METR-122 PO (11:09)
--- NOTE | 2018-11-30 11:12 | PDOCDIS ---
Discharge Instructions CONDITION [id number] Patient Condition: [id number] Stable HOME CARE INSTRUCTIONS: [id number] Diet Instructions: [id number] Low Fat /Cholesterol OTHER ORDERS: Other Orders: 1. Resume home medications. 2. Complete the course of antibiotics (prescriptions sent electronically). 3. Take a regular, preferably low-cholesterol diet as tolerated. 4. Please follow-up with your primary care physician in 2 weeks. Have your primary care physician arrange for outpatient gastroenterology follow-up for arranging for a colonoscopy in the next 6-8 weeks. 5. Please go to the nearest emergency room if you have any significant abdominal pain, persistent nausea/vomiting, persistent diarrhea, or any other unusual signs/symptoms. NATALIO ENCINAS NP Nov 30, 2018 11:12
--- NOTE | 2018-11-30 11:16 | DS ---
Date/Time of Note Date/Time of Note DATE: 11/30/18 TIME: 11:13 Discharge Summary Admission/Discharge Info Admit Date/Time Nov 28, 2018 at 08:25 Discharge Date/Time Discharge Diagnosis 1. Uncomplicated diverticulitis of the sigmoid colon. 2. Hypertension. 3. Emphysema. 4. Dyslipidemia. Patient Condition: Stable Procedures CT Abdomen & Pelvis IMPRESSION: 1. Uncomplicated diverticulitis of the sigmoid colon. No evidence of bowel perforation, no abscess. 2. Moderate underlying diverticulosis of the left colon. 3. Small hiatal hernia and tiny fat containing umbilical hernia. 4. Bilateral renal cortical cysts. 5. Emphysema. 6. Mild aortic atherosclerosis. Hx of Present Illness This is a 73-year-old male with a past medical history of hypertension, COPD, and dyslipidemia. The patient started having abdominal pain for the past 2 days, located in the suprapubic and left quadrant area. The patient also verbalized febrile illness. The patient denied any nausea, vomiting, diarrhea, or hematochezia. He denied any relieving or exacerbating factors. In the emergency room, the patient underwent a CT scan of the abdomen and pelvis that was showing diverticulitis of the sigmoid colon with no evidence of bowel perforation or abscess. The patient's WBC was within normal limits. The patient was started on IV antibiotics in the emergency room. Hospital Course The patient was admitted to inpatient setting. He was kept NPO. The patient was started on Cipro + Flagyl. The patient was maintained on IVFs. The patient was provided with adequate pain control. Once the patient's abdominal pain was better, he was started on a clear liquid diet. The patient's diet was advanced as tolerated to a regular consistency diet. The patient responded to the treatment strategy very well. The patient will be discharged home on oral antibiotics. The patient's chronic problems include hypertension and dyslipidemia. The patient was maintained on antihypertensives. The patient's fasting lipid panel was satisfactory. The patient has underlying emphysema. The patient did not have any evidence of exacerbation on his COPD. He was maintained on PRN JEANNA. The patient had a stable hospital course. The patient needs a colonoscopy in the next 6-8 weeks and this can be arranged with his PCP. Discharge Instructions 1. Resume home medications. 2. Complete the course of antibiotics (prescriptions sent electronically). 3. Take a regular, preferably low-cholesterol diet as tolerated. 4. Please follow-up with your primary care physician in 2 weeks. Have your primary care physician arrange for outpatient gastroenterology follow-up for arranging for a colonoscopy in the next 6-8 weeks. 5. Please go to the nearest emergency room if you have any significant abdominal pain, persistent nausea/vomiting, persistent diarrhea, or any other unusual signs/symptoms The patient verbalized understanding of his discharge instructions. The patient was seen in collaboration with Dr. Singh. Home Meds Active Scripts Metronidazole* (Metronidazole*) 500 Mg Tablet, 500 MG PO Q8 for 10 Days, #30 TAB Prov:NATALIO ENCINAS NP 11/30/18 Ciprofloxacin Hcl* (Ciprofloxacin Hcl*) 500 Mg Tablet, 500 MG PO BID for 10 Days, #20 TAB Prov:NATALIO ENCINAS NP 11/30/18 Reported Medications Ergocalciferol (Vitamin D2) (VITAMIN D2) 50,000 Unit Capsule, 77525 UNIT PO EVERY 7 DAYS, CAP PT DOSENT KNOW WHICH DAY 11/28/18 Aspirin (Low Dose Aspirin) 81 Mg Tablet., 81 MG PO DAILY, #30 TAB 11/28/18 Fenofibrate, Micronized (Fenofibrate) 67 Mg Capsule, 67 MG PO DAILY, CAP 11/28/18 Rizatriptan Benzoate (Rizatriptan Benzoate) 10 Mg Tab.rapdis, 10 MG PO BID PRN for MIGRAINE, TAB may repeat after 2 hours, MAX 30 mg/24 hour 11/28/18 Captopril* (Captopril*) 25 Mg Tablet, 25 MG PO DAILY, #60 TAB 11/28/18 Discontinued Scripts Acetaminophen* (Tylophen*) 500 Mg Capsule, 1 CAP PO Q6H PRN for PAIN AND OR ELEVATED TEMP, #20 CAP Prov:DESHAUN SPRAGUE PA-C 05/20/18 Amoxicillin* (Amoxicillin*) 500 Mg Cap, 500 MG PO BID, #20 CAP Prov:SARAH SALAS PA-C 01/29/18 Ibuprofen* (Ibuprofen*) 600 Mg Tablet, 600 MG PO Q8 for PAIN AND/OR INFLAMMATION, #30 TAB Prov:DONNY CM MD 08/04/17 Levothyroxine Sodium* (Levothyroxine Sodium*) 25 Mcg Tablet, 25 MCG PO BEFORE BREAKFAST, #30 TAB Prov:KAMARI TAVARES MD 12/16/16 Pantoprazole* (Pantoprazole*) 40 Mg Tablet., 40 MG PO BID, #60 Prov:KAMARI TAVARES MD 12/16/16 Aspirin* (Aspirin* EC) 81 Mg Tablet., 81 MG PO DAILY, #30 Prov:KAMARI TAVARES MD 12/16/16 Captopril* (Captopril*) 12.5 Mg Tablet, 12.5 MG PO BID, #60 TAB Prov:KAMARI TAVARES MD 12/16/16 Docusate Sodium* (Colace*) 100 Mg Capsule, 100 MG PO TID, #30 CAP Prov:JOSE ANTONIO KILGORE DO 04/23/16 Follow-up Plan Patient to follow-up with his primary care physician in 2 weeks. Primary Care Provider Care Physician No Primary Time spent on discharge: > 30 minutes Pending Labs Laboratory Tests Test 11/30/18 05:16 White Blood Count 3.9 10^3/ul (4.8-10.8) Red Blood Count 4.30 10^6/ul (4.70-6.10) Hemoglobin 13.0 g/dl (14.0-18.0) Hematocrit 39.7 % (42.0-52.0) Mean Corpuscular Volume 92.3 fl (82.0-101.0) Mean Corpuscular Hemoglobin 30.2 pg (29.0-33.0) Mean Corpuscular Hemoglobin Concent 32.7 g/dl (32.0-37.0) Red Cell Distribution Width 13.2 % (11.5-14.5) Platelet Count 146 10^3/UL (140-415) Mean Platelet Volume 9.7 fl (7.4-10.4) Immature Granulocytes % 0.300 % (0.001-0.429) Neutrophils % 57.8 % (39.0-77.0) Lymphocytes % 26.2 % (15.0-51.0) Monocytes % 13.7 % (0.0-11.0) Eosinophils % 1.5 % (0.0-7.0) Basophils % 0.5 % (0.0-2.0) Nucleated Red Blood Cells % 0.0 /100WBC (0.0-0.0) Immature Granulocytes # 0.010 10^3/ul (0.0-0.031) Neutrophils # 2.3 10^3/ul (1.6-7.5) Lymphocytes # 1.0 10^3/ul (0.8-2.9) Monocytes # 0.5 10^3/ul (0.3-0.9) Eosinophils # 0.1 10^3/ul (0.0-0.5) Basophils # 0.0 10^3/ul (0.0-0.1) Nucleated Red Blood Cells # 0.0 10^3/ul (0.0-0.0) Sodium Level 141 mmol/L (135-144) Potassium Level 4.1 mmol/L (3.5-5.1) Chloride Level 105 mmol/L (97-110) Carbon Dioxide Level 26 mmol/L (21-31) Anion Gap 10 (5-13) Blood Urea Nitrogen 12 mg/dl (7-20) Creatinine 0.74 mg/dl (0.61-1.24) Est Glomerular Filtrat Rate mL/min mL/min (>60) Glucose Level 85 mg/dl (70-220) Calcium Level 8.7 mg/dl (8.4-10.2) Phosphorus Level 2.4 mg/dl (2.5-4.9) Magnesium Level 2.0 mg/dl (1.7-2.5) NATALIO ENCINAS NP Nov 30, 2018 11:16
== END 2018-11-30 12:45 | disposition home or self-care (01) ==
LOC: E/R 05:30 → MS3 08:25 → INTOOBSV 08:25 → 2NE 11-29 15:55
PROVIDERS: ADMIT Internal Medicine; ATTEND Internal Medicine
DX: K57.32 Diverticulitis of large intestine without perforation or abscess without bleeding (principal); I10 Essential (primary) hypertension; J43.9 Emphysema, unspecified; E78.5 Hyperlipidemia, unspecified; N40.0 Benign prostatic hyperplasia without lower urinary tract symptoms; Z79.82 Long term (current) use of aspirin
CPT/HCPCS: 36415; 74176; 80048; 80053; 80061; 81001; 83690; 83735; 84100; 84484; 85025; 87086; 96374; 96375; 99285; G0378; J0696; J0744; J1650; J1885; J2405; J7030; J7040; 99217

== ENCOUNTER 2018-12-05 04:04 | Emergency (ER) | payer MEDICARE, OTHER ==
[~2018-12-05] VITALS: Ht 170.2 cm; Wt 72.5 kg
[~2018-12-05 04:04] MED LIST changes: -ACET500C5 PO; -AMOX500C2 PO; -ASPI-817 PO; +ASPI81TA52 PO; -CAPT12.52 PO; +CAPT25TA3 PO; +CIPR500T4 PO; -DOCU-144 PO; +ERGO500013 PO; +FENO67CA PO; -IBUP-1542 PO; -LEVO25TA6 PO; +METR-122 PO; -PANT40TA4 PO; +RIZA10TA24 PO
[2018-12-05 04:08] VITALS: Ht 170.2 cm; Wt 72.5 kg
[2018-12-05] MEDS ORDERED: SOD CHLORIDE 0.9% 500 ML IV STA (04:54)
[2018-12-05] MEDS ORDERED: morphine 4 MG/ML VIAL IV STA (04:54)
[2018-12-05] MEDS ORDERED: ONDANSETRON 4 MG INJ IV STA (04:54)
--- NOTE | 2018-12-05 05:25 | ERD ---
ER Documentation Chief Complaint Chief Complaint AP WITH VOMITING X'S 2 DAYS HPI 71 female abdominal pain vomiting for 2 days. He was recently admitted to the hospital. He came in today demanding to have both a colonoscopy and an EGD done immediately. I informed him that I need to rule out emergency issues first given that he still has epigastric pain and the patient seemed to understand. [facility] through his workup, patient decided to leave and eloped prior to full evaluation treatment since she was not getting the test that he asked for. Upon elopement he was a and O x4 with goal oriented speech and good decision-making capacity ROS All systems reviewed and are negative except as per history of present illness. Medications Home Meds Active Scripts Metronidazole* (Metronidazole*) 500 Mg Tablet, 500 MG PO Q8 for 10 Days, #30 TAB Prov:NATALIO ENCINAS [employer]ESSION[employer] 11/30/18 Ciprofloxacin Hcl* (Ciprofloxacin Hcl*) 500 Mg Tablet, 500 MG PO BID for 10 Days, #20 TAB Prov:NATALIO ENCINAS [employer] 11/30/18 Reported Medications Ergocalciferol (Vitamin D2) (VITAMIN D2) 50,000 Unit Capsule, 89619 UNIT PO EVERY 7 DAYS, CAP PT DOSENT KNOW WHICH DAY 11/28/18 Aspirin (Low Dose Aspirin) 81 Mg Tablet.dr, 81 MG PO DAILY, #30 TAB 11/28/18 Fenofibrate, Micronized (Fenofibrate) 67 Mg Capsule, 67 MG PO DAILY, CAP 11/28/18 Rizatriptan Benzoate (Rizatriptan Benzoate) 10 Mg Tab.rapdis, 10 MG PO BID PRN for MIGRAINE, TAB may repeat after 2 hours, MAX 30 mg/24 hour 11/28/18 Captopril* (Captopril*) 25 Mg Tablet, 25 MG PO DAILY, #60 TAB 11/28/18 Discontinued Scripts Acetaminophen* (Tylophen*) 500 Mg Capsule, 1 CAP PO Q6H PRN for PAIN AND OR ELEVATED TEMP, #20 CAP Prov:DESHAUN SPRAGUEC 05/20/18 Amoxicillin* (Amoxicillin*) 500 Mg Cap, 500 MG PO BID, #20 CAP Prov:SARAH SALASC 01/29/18 Ibuprofen* (Ibuprofen*) 600 Mg Tablet, 600 MG PO Q8 for PAIN AND/OR INFLAM MATION, #30 TAB Prov:DONNY CM MD 08/04/17 Levothyroxine Sodium* (Levothyroxine Sodium*) 25 Mcg Tablet, 25 MCG PO BEFORE BREAKFAST, #30 TAB Prov:KAMARI TAVARES MD 12/16/16 Pantoprazole* (Pantoprazole*) 40 Mg Tablet., 40 MG PO BID, #60 Prov:KAMARI TAVARES MD 12/16/16 Aspirin* (Aspirin* EC) 81 Mg Tablet.dr, 81 MG PO DAILY, #30 Prov:KAMARI TAVARES MD 12/16/16 Captopril* (Captopril*) 12.5 Mg Tablet, 12.5 MG PO BID, #60 TAB Prov:KAMARI TAVARES MD 12/16/16 Docusate Sodium* (Colace*) 100 Mg Capsule, 100 MG PO TID, #30 CAP Prov:JOSE ANTONIO KILGORE DO 04/23/16 Allergies Allergies: Coded Allergies: No Known Drug Allergies (Verified Allergy, Unknown, 07/03/18) PMhx/Soc History of Surgery: No Anesthesia Reaction: No Hx Neurological Disorder: No Hx Respiratory Disorders: No Hx Cardiac Disorders: No Hx Psychiatric Problems: No Hx Miscellaneous Medical Probl: No Hx Alcohol Use: No Hx Substance Use: No Hx Tobacco Use: No Physical Exam Vitals Vital Signs Date Temp Pulse Resp B/P (MAP) Pulse Ox O2 O2 Flow FiO2 Time Delivery Rate 12/05/18 97.0 71 18 129/72 97 04:08 (91) Physical Exam Const: No acute distress Head: Atraumatic Eyes: Normal Conjunctiva ENT: Normal External Ears, Nose and Mouth. Neck: Full range of motion. No meningismus. Resp: Clear to auscultation bilaterally Cardio: Regular rate and rhythm, no murmurs Abd: Soft, non tender, non distended. Normal bowel sounds Skin: No petechiae or rashes Back: No midline or flank tenderness Ext: No cyanosis, or edema Neur: Awake and alert Psych: Normal Mood and Affect Results 24 hrs Laboratory Tests Test 12/05/18 05:01 White Blood Count Pending Red Blood Count Pending Hemoglobin Pending Hematocrit Pending Mean Corpuscular Volume Pending Mean Corpuscular Hemoglobin Pending Mean Corpuscular Hemoglobin Concent Pending Red Cell Distribution Width Pending Platelet Count Pending Mean Platelet Volume Pending Urine Color YELLOW Urine Clarity CLEAR Urine pH 5.0 Urine Specific [place] 1.020 Urine Ketones NEGATIVE mg/dL Urine Nitrite NEGATIVE mg/dL Urine Bilirubin NEGATIVE mg/dL Urine Urobilinogen NEGATIVE mg/dL Urine Leukocyte Esterase 1+ Eliazbeth/ul Urine Microscopic RBC 4 /HPF Urine Microscopic WBC 1 /HPF Urine Mucus FEW /HPF Urine Hemoglobin 1+ mg/dL Urine Glucose NEGATIVE mg/dL Urine Total Protein NEGATIVE mg/dl Current Medications Medications Dose Sig/Frank Start Time Status Last (Trade) Ordered Route PRN Stop Time Admin Dose Reason Admin Sodium 500 ml @ Q1H STAT 12/05/18 Chloride 500 mls/hr IV 04:54 12/05/18 05:53 Morphine 4 mg ONCE STAT 12/05/18 DC Sulfate IV 04:54 (morphine) 12/05/18 04:55 Ondansetron 4 mg ONCE STAT 12/05/18 DC HCl (Zofran IV 04:54 Inj) 12/05/18 04:55 Procedures/MDM Chest X-ray 1V Interpreted by me: Soft Tissue: No acute abnormalities Bones: No acute abnormalities Mediastinum/Cardiac Silhouette/Lungs: [No acute abnormalities] Medical decision makin-year-old male who 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 Departure Diagnosis: Primary Impression: Abdominal pain Abdominal location: unspecified location Qualified Codes: R10.9 - Unspecified abdominal pain Condition: Stable LEEROY RIVAS Dec 05, 2018 05:25
[2018-12-05 05:27] VITALS: BP 134/91; PULSE 86; RESP 18
== END 2018-12-05 05:38 | disposition left against medical advice (07) ==
LOC: E/R 04:04
DX: R10.9 Unspecified abdominal pain (principal); R40.2142 Coma scale, eyes open, spontaneous, at arrival to emergency department; R40.2362 Coma scale, best motor response, obeys commands, at arrival to emergency department; R40.2252 Coma scale, best verbal response, oriented, at arrival to emergency department; Z79.82 Long term (current) use of aspirin
CPT/HCPCS: 36415; 71045; 80053; 81001; 83690; 84484; 85025; 87086; 93005; 99285; J7040; J2270; J2405

== ENCOUNTER 2019-03-10 05:31 | Emergency (ER) | payer MEDICARE, OTHER ==
[~2019-03-10] VITALS: Ht 170.2 cm; Wt 70.6 kg
[2019-03-10 05:33] VITALS: Ht 170.2 cm; Wt 70.6 kg
[2019-03-10] MEDS ORDERED: BENZ200C68 PO (07:51)
--- NOTE | 2019-03-12 04:48 | ERD ---
ER Documentation Chief Complaint Chief Complaint cough x 6 days; stated had fever; afebrile at triage; VS WNL HPI 73-year-old male presents with complaints of intermittent dry cough for the past 6 days. He had fever initially but this is resolved. He has had some night sweats. He denies any hemoptysis. He denies any sore throat, abdominal pain, chest pain, shortness of breath, or other symptoms. Symptoms currently mild in severity. ROS All systems reviewed and are negative except as per history of present illness. Medications Home Meds Active Scripts Benzonatate* (Benzonatate*) 200 Mg Capsule, 200 MG PO TID PRN for COUGH, #15 CAP Prov:LEEROY HUANG PA-C 03/10/19 Metronidazole* (Metronidazole*) 500 Mg Tablet, 500 MG PO Q8 for 10 Days, #30 TAB Prov:NATALIO ENCINAS CALCULATION REVIEWER 11/30/18 Ciprofloxacin Hcl* (Ciprofloxacin Hcl*) 500 Mg Tablet, 500 MG PO BID for 10 Days, #20 TAB Prov:NATALIO ENCINAS CALCULATION REVIEWER 11/30/18 Reported Medications Ergocalciferol (Vitamin D2) (VITAMIN D2) 50,000 Unit Capsule, 82748 UNIT PO EVERY 7 DAYS, CAP PT DOSENT KNOW WHICH DAY 11/28/18 Aspirin (Low Dose Aspirin) 81 Mg Tablet.dr, 81 MG PO DAILY, #30 TAB 11/28/18 Fenofibrate, Micronized (Fenofibrate) 67 Mg Capsule, 67 MG PO DAILY, CAP 11/28/18 Rizatriptan Benzoate (Rizatriptan Benzoate) 10 Mg Tab.rapdis, 10 MG PO BID PRN for MIGRAINE, TAB may repeat after 2 hours, MAX 30 mg/24 hour 11/28/18 Captopril* (Captopril*) 25 Mg Tablet, 25 MG PO DAILY, #60 TAB 11/28/18 Allergies Allergies: Coded Allergies: No Known Drug Allergies (Verified Allergy, Unknown, 07/03/18) PMhx/Soc Medical and Surgical Hx: pt denies Medical Hx, pt denies Surgical Hx History of Surgery: No Anesthesia Reaction: No Hx Neurological Disorder: No Hx Respiratory Disorders: No Hx Cardiac Disorders: No Hx Psychiatric Problems: No Hx Miscellaneous Medical Probl: No Hx Alcohol Use: No Hx Substance Use: No Hx Tobacco Use: No Smoking Status: Never smoker FmHx Family History: No diabetes Physical Exam Vitals Vital Signs Date Temp Pulse Resp B/P (MAP) Pulse Ox O2 O2 Flow FiO2 Time Delivery Rate 03/10/19 97.9 85 16 127/69 96 05:33 (88) Physical Exam Const: No acute distress Head: Atraumatic Eyes: Normal Conjunctiva ENT: Normal External Ears, Nose and Mouth. Neck: Full range of motion. No meningismus. Resp: Shallow inspiratory effort. No respiratory distress. No crackles or wheezing. Cardio: Regular rate and rhythm, no murmurs Abd: Soft, non tender, non distended. Normal bowel sounds Skin: No petechiae or rashes Back: No midline or flank tenderness Ext: No cyanosis, or edema Neur: Awake and alert Psych: Normal Mood and Affect Results 24 hrs [place] [id number] Radiology Main Line: [phone] DIAGNOSTIC IMAGING REPORT Patient: KATIE CAMP : 1945 Age: 73 Sex: M MR #: [id number] DOS: 03/10/19 0000 Ordering MD: LEEROY HUANG PA-C Location: [facility] Room/Bed: PROCEDURE: XR Chest 1 View CLINICAL INDICATION: Cough for 6 days. TECHNIQUE: VIEWS: 1 IMAGES: 1 COMPARISON: January 04, 2017 and December 05, [address] abdomen pelvis dated November 28, 2018. FINDINGS: CARDIAC AND MEDIASTINAL SILHOUETTES: Within normal limits. LUNGS: Tiny fat pad is again seen within the left mid lung field. Lungs are relatively hyperinflated. Bilateral nipple shadows is now appear to be present. OSSEOUS STRUCTURES: Unremarkable. IMPRESSION: 1. Emphysematous changes are again seen. 2. Bilateral nipple shadows now appear to be present. Follow-up with nipple markers may be helpful for confirmation to exclude pulmonary nodules. RPTAT:HGST Krishna Francois Physician Date Time Electronically viewed and signed by Krishna Francois Physician on 03/10/2019 07:47 GT/ CC: LEEROY HUANG PA-C [id number] Procedures/MDM 73-year-old male presents to the emergency department complaining of cough. Chest x-ray is negative for any sign of infiltrate. The patient's clinical presentation is very consistent with an acute viral syndrome. The patient does not exhibit any clinical signs or symptoms concerning for serious bacterial infection or systemic illness. Based on history and clinical exam findings the patient does not appear to have evidence of pneumonia, strep pharyngitis, urinary tract infection, bacteremia, sepsis, or meningitis. For these reasons I do not believe it is necessary to obtain laboratory testing or diagnostic imaging. I believe it would be appropriate for symptom control, and close outpatient primary care follow-up. Based on patient's history of present illness and physical examination the decision was made to discharge. There is no evidence of life threatening injuries or illnesses at this time. On re-examination, patient resting in no distress, stable vital signs, reports feeling better and safe for discharge with outpatient follow up with PMD in 1-2 days. Patient given return precautions. Departure Diagnosis: Primary Impression: Cough Condition: Fair Patient Instructions: Cough, Chronic, Uncertain Cause, (Adult) Additional Instructions: Call your primary care doctor TOMORROW for an appointment during the next 1-2 days.See the doctor sooner or return here if your condition worsens before your appointment time. LEEROY HUANG PA-C Mar 12, 2019 04:48
== END 2019-03-10 07:59 | disposition home or self-care (01) ==
LOC: FTE 05:31
DX: R05 Cough (principal)
CPT/HCPCS: 71045